=== PATIENT | female | born 1970 | race Caucasian/White ===

== ENCOUNTER → 2017-03-28 09:37 | Outpatient (CLI) | payer OTHER, SELFPAY ==
--- NOTE | 2017-03-28 09:40 | RAD_ITS ---
STUDY: X-RAY - LUMBAR SPINE REASON FOR EXAM: Female, 46 years old. Pain shooting down left leg TECHNIQUE: 5 view(s) of the lumbar spine were obtained. COMPARISON: Prior study of 08/18/2015 FINDINGS: Normal lumbar lordosis. There is no substantial scoliosis. There is a normal alignment of the vertebrae. There is mild diffuse endplate spondylosis throughout the lumbar spine. There is moderate narrowing of the L3-4 disc space. There is no demonstrated fracture. The soft tissue structures are unremarkable. RAD/L/S Spine Min 4 Views IMPRESSION: Mild diffuse endplate spondylosis. There is no evidence of fracture, spondylolysis, or spondylolisthesis. There is moderately severe narrowing of the L3-4 disc space. Electronically Signed: Aj Culp MD at 22:18 EST , Service support ,
== END ==
PROVIDERS: Family Provider Family Medicine; PCP Family Medicine; Visit Provider Family Medicine
DX: M79.605 Pain in left leg (principal)
CPT/HCPCS: 72110

== ENCOUNTER → 2017-04-20 13:45 | Outpatient (CLI) | payer OTHER, SELFPAY ==
--- NOTE | 2017-04-20 13:45 | MRI_ITS ---
STUDY: MRI LUMBAR SPINE WITHOUT CONTRAST REASON FOR EXAM: Female, 47 years old. Radiculopathy and left sided sciatica TECHNIQUE: Standardized fat and water weighted pulse sequences were obtained in the sagittal and axial planes. COMPARISON: None FINDINGS: T12-L1: Normal endplates. Normal disc height, hydration and morphology. Normal bilateral facet joints. Normal central canal and bilateral lateral recesses. Normal bilateral intervertebral neural foramina. Normal lumbar lordosis. There is no substantial scoliosis. Normal conus medullaris that terminates at the L1 level. L1-2: Normal endplates. Normal disc height, hydration and morphology. Normal bilateral facet joints. Normal central canal and bilateral lateral recesses. Normal bilateral intervertebral neural foramina. L2-3: Normal endplates. Normal disc height, hydration and morphology. Normal bilateral facet joints. Normal central canal and bilateral lateral recesses. Normal bilateral intervertebral neural foramina. L3-4: Disc space narrowing and desiccation with anterior osteophytes. Bulging annulus with mild central canal and bilateral foraminal stenoses. L4-5: Disc desiccation. Broad left subarticular disc protrusion and bilateral facet and ligamentum flavum hypertrophy. Moderate to severe left lateral recess stenosis and moderate left foraminal stenosis. L5-S1: Normal endplates. Normal disc height, hydration and morphology. Normal bilateral facet joints. Normal central canal and bilateral lateral recesses. Normal bilateral intervertebral neural foramina. Normal visualized sacral ala. Normal visualized paraspinous soft tissue structures. MRI/Spine Lumbar (Routine) IMPRESSION: Degenerative disc disease at the L3-4 and L4-5 levels. Moderate to severe left lateral recess stenosis and moderate left foraminal stenosis at the L4-5 level. Electronically Signed: Chi Zhou MD at 0:21 EST Tel , Service support ,
== END ==
PROVIDERS: Family Provider Family Medicine; PCP Family Medicine; Visit Provider Family Medicine
DX: M54.16 Radiculopathy, lumbar region (principal)
CPT/HCPCS: 72148

== ENCOUNTER 2017-07-17 09:30 | Outpatient (RCR) | payer OTHER, SELFPAY ==
--- NOTE | 2017-03-23 13:51 | HP.PTEVAL_ITS ---
Patient's Visit Information JARRELL GOFF is a 46 year old F referred to Physical Therapy by Balwinder Fajardo DR.JSUPPA with a diagnosis of PLANTAR FASCITIS. Date of Evaluation: 03/22/17 Physical Therapist: Carolann Hong - Visit Plan Frequency: 2-3x /Week Duration: 4-6 Weeks Plan: LEFT FOOT US, STM AND STRETCHING. LLE AND CORE STRENGTHENING. POSTURE CORRECTION AND STRENGTHEING. PATIENT IS AGREEABLE TO THIS POC AND PLANS TO SEE DR. COHN FOR HER LOW BACK PAIN AND RECENT EPISODE OF SHOOTING PAIN DOWN THE LLE. 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 Disability: NO. Present symptoms: LEFT HEEL AND ARCH. PATIENT DENIES JANEE LE PAIN, NUMBNESS OR TINGLING OTHERWISE. Present since: ABOUT 4 MONTHS AGO. Pain Scale: WORST 7/10, LEAST 0/10. Currently: 10. Commenced as a result of: NO APPARENT REASON. Symptoms at onset: SAME. Worse: STAIRS, WALKING. Better: GETTING THE WEIGHT OFF OF IT. TEMP RELEIF FROM EX'S DR. FAJARDO GAVE HER: CALF STRETCHING IN STANDING AND LONG SIT OR SITTING. Disturbed sleep: NO. Previous history/Previous treatment: HOME EX' S. NEW ORTHOTICS ABOUT 6 WEEKS AGO AND THEY MIGHT BE HELPIING A LITTLE BIT BUT NOT MUCH. HAS HAD ORTHOTICS HERE BEFORE TOO AND DID NOT LIGHT THEM. HISTORY OF DX OF PLANTAR FASCITIS 2 TIMES IN THE PAST STARTING BACK ABOUT 20 YEARS AGO. FIRST TIME SHE GOT OVER THE PLANTAR FASCITIS WITH PT BUT SECOND TIME RESUMED THE EX'S AND IT WENT AWAY. CAN'T GET IT TO GO AWAY THIS TIME. BACK HAS BEEN FLARED UP QUITE A BIT OVER THE LAST 4 MONTHS TOO. Gait: PATIENT REPORTS THE FOOT PAIN CAUSES HER TO LIMP SHE TRIES NOT TO PUT PRESSURE ON HER HEEL BECAUSE SHE HAS TO KEEP GOING BUT AT TIMES IT FEELS LIKE IT IS GOING TO SNAP. Accidents: NO. Unexplained weight loss: NO. Imaging: X-RAY OF LEFT FOOT - NORMAL PER PATIENT REPORT. PMH: HTN, SLEEP APNEA, HYPOTHYROID, NIDDM, FIBROMYALGIA, GERD. HISTORY OF LBP STARTING ABOUT 8 YEARS AGO. CHRONIC BACK PAIN WITH REFERRAL TO BUTTOCKS. MASSAGE ONCE A MONTH. PT FOR BACK IN THE PAST WITH BENEFIT AND STILL DOES PIRIFORMIS STRETCHING. NO LUMBAR MRI. NO BACK SURGERY OR BERNY'S. Recent major surgery: UNREMARKABLE BUT GASTRIC SLEEVE PLANNED IN JUNE [address] [facility]. ON 1500 JALEN DIET AND HAS LOST 10LBS. OTHER: PATIENT HAS HAD TWO EPISODES OF SEVERE PAIN SHOOTING DOWN HER LLE FROM HER BACK AND THE LAST TIME WAS WITHIN THE LAST 4 MONTHS. CURRENTLY SEES A CHIROPRACTOR. - Objective THIS PATIENT AMBULATES INDEP'LY INTO PT WITHOUT ANY ASSISTIVE DEVICES AND A MILD LIMP ON THE LLE. LUMBAR MVMT LOSS: FLEX - MIN, EXT - MOD, RIGHT SG - MIN WITH C/O LEFT LBP, LEFT SG - MIN. SITTING POSTURE IS POOR. ACTIVE CORRECTION OF SITTING POSTURE ABOLISHES L HEEL PAIN. POSSIBLE POSITIVE LLE DURAL SIGN. JANEE LE LIGHT TOUCH SENSATION IS INTACT AND SYMMETRICAL. JANEE LE DTR'S ARE NORMAL. RIGHT LE STRENGTH IS 5/5 WITH MMT. POOR CORE STRENGTH. LLE STRENGTH IS 5/5 WITH MMT EXCEPT LEFT HIP 4-/5 AND LEFT PLANTAR FLEX 3+/5. PATIENT HAS TENDERNESS WITH PALPATION OF THE LEFT HEEL AND THE L45S1 REGIONS. PATIENT HAS TIGHT HS'S AND GASTROC SOLEUS COMPLEX'S JANEE. - Goals Goal 1:: DECREASE C/O LEFT FOOT PAIN. Goal Time Frame: 4-6 Weeks Goal 2:: IMPROVE STANDING, WALKING AND STAIR CLIMBING FUNCTION Goal Time Frame: 4-6 Weeks Goal 3:: INDEP HEP Goal Time Frame: 4-6 Weeks - Rehabilitation Potential Rehabilitation Potential: Fair - Anticipated Interventions Patient/Client Instruction: Educate patient on: Condition, Plan of Care, Risk Factors, Benefits of Fitness Program For the Purpose of:: To improve self management Therapeutic Exercise to Include: Strength training, Flexibilty training, Gait and locomotor training, In an aquatic setting, Passive ROM, Active ROM, Dynamic Lumbar Stabilization Comment: PATIENT MAY BE A GOOD CANDIDATE FOR AQUATIC THERAPY. For the Purpose of:: To decrease pain, To increase ROM, To improve muscle performance and motor function, To improve ability of physical actions for home/ community/work/leisure Manual Therapy Techniques to Include: Functional dry needling, Soft tissue mobilization Comment: CONSIDER DRY NEEDLING LEFT FOOT. HAVE NOT DISCUSSED WITH PATIENT YET. For the Purpose of:: To decrease pain, To decrease swelling/inflammation, To increase ROM, To improve nutrient delivery to tissue Ultrasound (thermal/non thermal): Yes For the Purpose of:: To decrease pain, To decrease swelling/inflammation, To improve nutrient delivery to tissue Thank you for the opportunity to evaluate your patient. For Medicare and Medicare HMO plans, please review the plan of care and approve it. It will need to be FAXED BACK to us at [phone] for Medicare purposes. Please let me know if there are questions or concerns regarding this plan of care. Physician Signature: Date:
--- NOTE | 2017-07-17 09:30 | DT_ITS ---
This patient was seen during an EMR downtime July 17, 2017 - July 24, 2017. This patient may have a combination of paper and electronic documentation or all paper documentation. All documentation is viewable within the e-chart portion of [employer] for each patient visit.
--- NOTE | 2017-08-13 13:06 | HP.PTDCSUM_ITS ---
HP - PT D/C Summary It has been my pleasure to treat JARRELL GOFF under orders from Balwinder Fajardo , for the diagnosis of PLANTAR FASCITIS for a total of 15 visit(s). Discharge Date: Please see the following information for a summary of their discharge status. - Subjective Subjective: PATIENT REPORTS SHE IS HAPPY WITH HER PROGRESS WITH PT. WANTS TO BE D/C'D TO CONTINUE THE EX'S IN HER POOL AND THE HOME STRETCHES ON HER OWN. STILL HAS INTERMITTENT LEFT CALF AND FOOT TIGHTNESS ABOUT 5% OF THE THE. USUALLY NOT TIGHT. HAD GASTRIC SLEEVE SURG 06/20/17 THEREFORE HASN'T BEEN HERE SINCE SURGERY. ON MEDICAL LEAVE X 1 MORE WEEK. ONLY EX IS WALKING RIGHT NOW. - Pain L foot Pain Intensity (Out of 10): 0 LEFT LOW BACK/BUTTOCK Pain Intensity (Out of 10): 0 - Overall Improvement % Improvement: 95 - Objective Objective/Function: UPON EXAM, LUMBAR ROM WFL ALL PLANES WITH GENTLE TESTING. JANEE LE STRENGTH WITH MMT'IING IS AT LEAST 4/5 AND SYMMETRICAL. SENSATION LE'S - INTACT. SLS JANEE LE'S > 20 SEC EA. ABLE TO HEEL WALK AND TOE WALK. NO PAIN WITH TESTING TODAY. BACK OSWESTRY HAS IMPROVED FROM 7 TO 4. - Goals Goal 1:: DECREASE C/O LEFT FOOT PAIN. Goal Progress: Progressing Goal 2:: IMPROVE STANDING, WALKING AND STAIR CLIMBING FUNCTION Goal Progress: Progressing Goal 3:: INDEP HEP Goal Progress: Progressing - Plan Plan: D/C. PATIENT IS AGREEABLE. - D/C Information If there are questions or concerns regarding this patient's physical therapy, please feel free to call me at [phone]. Thank you for the referral of this patient. Sincerely, Carolann Hong
== END 2017-07-17 19:00 | disposition home or self-care (01) ==
LOC: PT 09:30
PROVIDERS: Family Provider Family Medicine; PCP Family Medicine; Visit Provider Podiatrist Foot & Ankle Surgery
DX: M72.2 Plantar fascial fibromatosis (principal)
CPT/HCPCS: 97014; 97035; 97110; 97113; 97140; 97162; 97164; 97530; G0283

== ENCOUNTER → 2017-08-11 06:00 | Outpatient (CLI) | payer OTHER, SELFPAY ==
[2017-08-11 07:30] LABS: Hematocrit 42.5 % (37-47); Hemoglobin 13.7 g/dl (12.0-15.0); Mean Corp Hgb Conc 32.2 g/gl (32-36); Mean Corpuscular Hgb 27.8 pg (27.0-32.0); Mean Corpuscular Volume 86.4 fL (81-99); Mean Platelet Vol. 10.3 fl (6.2-12.0); Platelet Count 355 K/mm3 (150-450); RBC Distribution Width CV 14.6 % (11.6-14.6); RBC Distribution Width SD 46.2 fl (35.1-43.9); Red Blood Count 4.92 M/mm3 (4.2-5.4); White Blood Count 10.5 K/mm3 (4.4-11.0)
[2017-08-11 07:32] LABS: Scan Indicated on CBC? Y/N NO
[2017-08-11 08:20] LABS: Anion Gap 8 (5-15); BUN 10 mg/dL (7-18); Calcium,Total 9.3 mg/dL (8.5-10.1); Chloride 105 mmol/L (98-107); Creatinine, Serum 0.83 mg/dL (0.55-1.02); EST Glomerular Filtration Rate 77 mL/min (>60); Est Glom Filt Rate - Afr Amer 94 mL/min (>60); Ferritin 189 ng/mL (8-252); Glucose 106 mg/dL (74-106); Iron 61 ug/dL (50-170); Iron Binding Capacity,Total 304 ug/dL (250-450); Potassium 4.1 mmol/L (3.5-5.1); Sodium Level 143 mmol/L (136-145)
[2017-08-11 08:34] LABS: Vitamin B12 996 pg/mL (211-911); Vitamin D,25 Hydroxy 63.2 ng/mL (29.95-100.01)
[2017-08-11 08:39] LABS: PTHIN 45.3 pg/mL (18.4-80.1)
[2017-08-15 09:58] LABS: Vitamin B1, Thiamine 183.4 nmol/L (66.5-200.0)
== END ==
PROVIDERS: Family Provider Family Medicine; PCP Family Medicine
DX: E56.9 Vitamin deficiency, unspecified (principal); Z98.84 Bariatric surgery status
CPT/HCPCS: 36415; 80048; 82306; 82607; 82728; 82746; 83540; 83550; 83970; 84425; 85027

== ENCOUNTER → 2017-09-23 09:38 | Outpatient (CLI) | payer OTHER, SELFPAY ==
[2017-09-23 10:51] LABS: Hematocrit 43.3 % (37-47); Mean Corp Hgb Conc 32.3 g/gl (32-36); Mean Corpuscular Hgb 28.4 pg (27.0-32.0); Mean Corpuscular Volume 87.8 fL (81-99); Mean Platelet Vol. 10.1 fl (6.2-12.0); Platelet Count 393 K/mm3 (150-450); RBC Distribution Width CV 14.9 % (11.6-14.6); Red Blood Count 4.93 M/mm3 (4.2-5.4); White Blood Count 9.1 K/mm3 (4.4-11.0)
[2017-09-23 10:54] LABS: Scan Indicated on CBC? Y/N NO
[2017-09-23 11:38] LABS: T4 Free Direct 1.06 ng/dL (0.76-1.46); Thyroid Stim Hormone (TSH) 0.97 uIU/mL (0.358-3.74)
[2017-09-23 12:28] LABS: Anion Gap 12 (5-15); BUN 9 mg/dL (7-18); BUN/Creat Ratio 10.6 RATIO (10-20); Calcium,Total 9.2 mg/dL (8.5-10.1); Chloride 102 mmol/L (98-107); Creatinine, Serum 0.85 mg/dL (0.55-1.02); EST Glomerular Filtration Rate 76 mL/min (>60); Est Glom Filt Rate - Afr Amer 91 mL/min (>60); Ferritin 141 ng/mL (8-252); Glucose 106 mg/dL (74-106); Iron 62 ug/dL (50-170); Iron Binding Capacity,Total 314 ug/dL (250-450); PERCENT IRON SATURATION 19.7 % (15.0-55.0); Potassium 3.9 mmol/L (3.5-5.1); Sodium Level 141 mmol/L (136-145)
[2017-09-25 09:07] LABS: T3 Total - Triiodothyronine 0.89 ng/mL (0.6-1.81)
[2017-09-25 09:07] LABS: Vitamin B12 1318 pg/mL (211-911)
== END ==
PROVIDERS: Family Provider Family Medicine; PCP Family Medicine; Visit Provider Family Medicine
DX: D64.9 Anemia, unspecified (principal); R53.83 Other fatigue; E56.9 Vitamin deficiency, unspecified; Z98.84 Bariatric surgery status
CPT/HCPCS: 36415; 80048; 82607; 82728; 82746; 83540; 83550; 84425; 84439; 84443; 84480; 85027

== ENCOUNTER → 2017-10-25 13:25 | Outpatient (CLI) | payer OTHER, SELFPAY ==
--- NOTE | 2017-10-25 13:33 | US_ITS ---
STUDY: ULTRASOUND TRANSVAGINAL CLINICAL: Female, 47 years old. Dyspareunia TECHNIQUE: Transvaginal COMPARISON: None. FINDINGS: Uterus not visualized consistent with hysterectomy Tiny nabothian cyst within the lower uterine segment Normal right ovary, measuring 3.4 x 2.4 x 2.1 cm. There is a cyst measuring 1.8 x 1.7 x 1.5 cm Left ovary not visualized status post oophorectomy There is no free fluid in the pelvis. US/Transvaginal Non- IMPRESSION: Small right ovarian cyst measuring 1.8 x 1.7 x 1.5 cm status post hysterectomy and left oophorectomy Electronically Signed: Brandon Umanzor MD at 21:44 EDT , Service support ,
== END ==
PROVIDERS: Family Provider Family Medicine; PCP Family Medicine; Visit Provider Advanced Practice Midwife
DX: R10.31 Right lower quadrant pain (principal); G89.29 Other chronic pain
CPT/HCPCS: 76830; 93976

== ENCOUNTER → 2017-11-29 22:28 | Outpatient (CLI) | payer OTHER, SELFPAY ==
[2017-11-29] MEDS: Zolpidem Tartrate 5 MG Tablet PO (22:00)
== END ==
PROVIDERS: Family Provider Family Medicine; PCP Family Medicine; Referring Provider Family Medicine; Visit Provider Family Medicine
DX: G47.33 Obstructive sleep apnea (adult) (pediatric) (principal)
CPT/HCPCS: 95811

== ENCOUNTER → 2018-01-01 09:36 | Outpatient (CLI) | payer OTHER, SELFPAY ==
[2017-12-14 16:28] VITALS: BMI 29.2
[2018-01-01 10:09] LABS: Hematocrit 43.7 % (37-47); Mean Corpuscular Hgb 28.1 pg (27.0-32.0); Mean Corpuscular Volume 87.6 fL (81-99); Mean Platelet Vol. 9.8 fl (6.2-12.0); Platelet Count 333 K/mm3 (150-450); RBC Distribution Width CV 14.2 % (11.6-14.6); RBC Distribution Width SD 45.4 fl (35.1-43.9); Red Blood Count 4.99 M/mm3 (4.2-5.4); White Blood Count 9.5 K/mm3 (4.4-11.0)
[2018-01-01 10:10] LABS: Scan Indicated on CBC? Y/N NO
[2018-01-01 10:57] LABS: Vitamin B12 1956 pg/mL (211-911)
[2018-01-01 10:59] LABS: PTHIN 35.3 pg/mL (18.4-80.1)
[2018-01-01 11:38] LABS: Anion Gap 11 (5-15); BUN 10 mg/dL (7-18); BUN/Creat Ratio 13.5 RATIO (10-20); Calcium,Total 9.1 mg/dL (8.5-10.1); Chloride 101 mmol/L (98-107); Creatinine, Serum 0.74 mg/dL (0.55-1.02); EST Glomerular Filtration Rate 88 mL/min (>60); Est Glom Filt Rate - Afr Amer 107 mL/min (>60); Ferritin 122 ng/mL (8-252); Glucose 92 mg/dL (74-106); Iron 73 ug/dL (50-170); Iron Binding Capacity,Total 325 ug/dL (250-450); Potassium 3.9 mmol/L (3.5-5.1); Sodium Level 138 mmol/L (136-145)
[2018-01-08 15:53] LABS: Vitamin B1, Thiamine 203.8 nmol/L (66.5-200.0)
== END ==
PROVIDERS: Family Provider Family Medicine; PCP Family Medicine
DX: E66.3 Overweight (principal); Z98.84 Bariatric surgery status; E66.9 Obesity, unspecified
CPT/HCPCS: 36415; 80048; 82306; 82607; 82728; 82746; 83540; 83550; 83970; 84425; 85027

== ENCOUNTER 2018-01-16 18:00 | Outpatient (RCR) | payer OTHER, SELFPAY ==
--- NOTE | 2017-05-12 12:53 | MASS.EVAL ---
Massage Therapy Evaluation: Initial Evaluation Date: 05/09/2017 SUBJECTIVE: Ivanna is a 46 year old female who was referred to the [facility] facility for a massotherapy evaluation by Dr. Samra Obrien with the diagnosis of fibromyalgia, low back pain and Sciatic pain. Ivanna presents today with the symptoms of low back pain with muscle tension in her low back and hips. She also complains of tension and pain in her neck shoulders and also reports foot pain. She reports having a medical history of neck and back pain. She reports having minimal limitations during her daily activities currently. OBJECTIVE: Upon observation Ivanna has poor posture with her head forward and shoulders forward from the neutral position in sitting and standing. After examination and palpation I found Mel to have very high muscle tension with tenderness and myofascial restrictions in her sub occipitals, trapezius, rhomboids, scalenes, thoracic paraspinals and pectoral muscles. Her hips and lumbar region were also tight. The first treatment consisted of a one hour massage to her upperbody and feet with myofascial release, muscle stripping, trigger point compression techniques, and cervical manual traction. ASSESSMENT: I feel that Ivanna is a good candidate for massotherapy at this time. She had a favorable response to the first treatment with reduction in her muscle aches, pain and tension. She also had improvement in her cervical flexibility. She has also responded to massage treatments well in the past. PLAN: The plan of care was reviewed with the patient. The patient is to be seen on as needed basis for a total of ten sessions with the recommendation of once every four weeks for a one hour treatment.
--- NOTE | 2018-01-30 16:14 | MASS.DISCH ---
Massage Therapy Discharge Summary: Initial Evaluation: 05/09/2017 Diagnosis: Fibromyalgia, low back pain, sciatic pain No. of Visits: of 10 Date of last visit: 01/16/2018 Goals: Met Decreased pain This patient is being discharged from our care at the [facility]. Thank you, Edita Orellana LMT
--- NOTE | 2018-01-30 16:17 | DS.PCM_ITS ---
Massage Therapy Discharge Summary: Initial Evaluation: 05/09/2017 Diagnosis: Fibromyalgia, low back pain, sciatic pain No. of Visits: of 10 Date of last visit: 01/16/2018 Goals: Met Decreased pain This patient is being discharged from our care at the [facility]. Thank you, Edita Orellana LMT
== END 2018-01-16 19:00 | disposition home or self-care (01) ==
LOC: MASS 18:00
PROVIDERS: Family Provider Family Medicine; PCP Family Medicine; Visit Provider Family Medicine
DX: M25.519 Pain in unspecified shoulder (principal)
CPT/HCPCS: 97124

== ENCOUNTER → 2018-02-16 12:42 | Outpatient (CLI) | payer OTHER, SELFPAY ==
[2017-12-14 16:28] VITALS: BMI 29.2
--- NOTE | 2018-02-16 12:46 | BI_ITS ---
MAMMOGRAPHY - BILATERAL SCREENING REASON FOR EXAM: Female, 47 years old. Routine annual screening examination. PERTINENT HISTORY: Non-contributory. History of prior bilateral breast reduction surgery. TECHNIQUE: Digital bilateral breast naa (3D mammographic acquisition) in the CC and MLO projections. 2-D mediolateral oblique (MLO) and craniocaudad (CC) views of both breasts were obtained. CAD: Full Field Digital Mammography with Computer Added Detection was performed. COMPARISON: Comparison is made with prior study dated February 02, 2017 and December 31, 2015. FINDINGS: Breast Composition: The breasts are heterogeneously dense, which may obscure small masses. There are no dominant masses or suspicious calcifications. No other significant abnormalities are identified. There has been no significant change since the prior study. BI/SCREENING MAMM (CAD), BILAT IMPRESSION: Stable bilateral screening mammogram. Yearly follow-up mammogram recommended. (A) ASSESSMENT CATEGORY: BIRADS Category 1: Negative. A letter regarding these results will be sent to the patient by the facility within 30 days. Approximately 10% of breast cancers are not detected by mammography. A normal mammogram should not delay biopsy of a clinically suspicious abnormality. [id number] Electronically Signed: Stephane Dinh MD at 15:37 EST Tel [phone], Service support ,
== END ==
PROVIDERS: Family Provider Family Medicine; PCP Family Medicine; Referring Provider Obstetrics & Gynecology; Visit Provider Obstetrics & Gynecology
DX: Z12.31 Encounter for screening mammogram for malignant neoplasm of breast (principal)
CPT/HCPCS: 77063; 77067

== ENCOUNTER → 2018-07-03 07:38 | Outpatient (CLI) | payer OTHER, SELFPAY ==
[2018-03-29 10:15] VITALS: BMI 25.7
[2018-07-03 08:15] LABS: Hematocrit 42.3 % (37-47); Mean Corp Hgb Conc 33.1 g/gl (32-36); Mean Corpuscular Volume 87.8 fL (81-99); Mean Platelet Vol. 9.1 fl (6.2-12.0); Platelet Count 322 K/mm3 (150-450); RBC Distribution Width CV 13.7 % (11.6-14.6); RBC Distribution Width SD 44.2 fl (35.1-43.9); Red Blood Count 4.82 M/mm3 (4.2-5.4); White Blood Count 7.4 K/mm3 (4.4-11.0)
[2018-07-03 08:17] LABS: Scan Indicated on CBC? Y/N NO
[2018-07-03 08:36] LABS: Microalbumin,Random Urine 5.2 mg/L (NO RANGE EST.); Microalbumin:Creatinine Ratio 4.5 mg/g CRE (<30 mg/g CRE)
[2018-07-03 08:47] LABS: Hemoglobin A1c 5.7 % (4.2-6.3)
[2018-07-03 08:51] LABS: Vitamin B12 > 2000 pg/mL (211-911)
[2018-07-03 09:21] LABS: Anion Gap 5 (5-15); BUN 15 mg/dL (7-18); BUN/Creat Ratio 18.3 RATIO (10-20); Calcium,Total 9.6 mg/dL (8.5-10.1); Chloride 104 mmol/L (98-107); Cholesterol 215 mg/dL (200); Creatinine, Serum 0.82 mg/dL (0.55-1.02); EST Glomerular Filtration Rate 78 mL/min (>60); Est Glom Filt Rate - Afr Amer 95 mL/min (>60); Ferritin 144 ng/mL (8-252); Free T3 2.3 pg/mL (2.18-3.98); Glucose 88 mg/dL (74-106); High Density Lipoprotein 67 mg/dL; Iron 105 ug/dL (50-170); Iron Binding Capacity,Total 319 ug/dL (250-450); Potassium 4.3 mmol/L (3.5-5.1); Sodium Level 138 mmol/L (136-145); T4 Free Direct 1.28 ng/dL (0.76-1.46); Thyroid Stim Hormone (TSH) 1.04 uIU/mL (0.358-3.74); Triglycerides 65 mg/dL; Very Low Density Lipoprotein 13 mg/dL (5-40)
[2018-07-06 15:48] LABS: Vitamin B1, Thiamine 229.7 nmol/L (66.5-200.0)
== END ==
PROVIDERS: Family Provider Family Medicine; PCP Family Medicine
DX: E11.9 Type 2 diabetes mellitus without complications (principal); E03.9 Hypothyroidism, unspecified; E78.5 Hyperlipidemia, unspecified; E56.9 Vitamin deficiency, unspecified; Z98.84 Bariatric surgery status; G47.33 Obstructive sleep apnea (adult) (pediatric); E61.1 Iron deficiency; Z99.89 Dependence on other enabling machines and devices
CPT/HCPCS: 36415; 80048; 80061; 82043; 82570; 82607; 82728; 82746; 83036; 83540; 83550; 84425; 84439; 84443; 84481; 85027

== ENCOUNTER → 2018-10-26 08:30 | Outpatient (CLI) | payer OTHER, SELFPAY ==
[2018-03-29 10:15] VITALS: BMI 25.7
--- NOTE | 2018-10-26 08:45 | MRI_ITS ---
STUDY: MRI LUMBAR SPINE WITHOUT CONTRAST REASON FOR EXAM: Female, 48 years old. Low back pain, bilateral leg pain. TECHNIQUE: Standardized fat and water weighted pulse sequences were obtained in the sagittal and axial planes. COMPARISON: 04/20/2017 FINDINGS: T12-L1: Normal endplates. Normal disc height, hydration and morphology. Normal bilateral facet joints. Normal central canal and bilateral lateral recesses. Normal bilateral intervertebral neural foramina. Normal lumbar lordosis. There is no substantial scoliosis. Normal conus medullaris that terminates at the L1. L1-2: Normal endplates. Normal disc height, hydration and morphology. Normal bilateral facet joints. Normal central canal and bilateral lateral recesses. Normal bilateral intervertebral neural foramina. L2-3: Normal endplates. Normal disc height, hydration and morphology. Normal bilateral facet joints. Normal central canal and bilateral lateral recesses. Normal bilateral intervertebral neural foramina. L3-4: Mild bilateral facet hypertrophy with fluid in the facet joints consistent with instability and mild ligament flavum hypertrophy. No change in the 2 mm retrolisthesis of L3 on L4 with a mild bilobed disc protrusion which produces mild spinal stenosis, moderate right neural foraminal stenosis with abutment of the right L3 nerve root laterally and mild left neural foraminal stenosis. L4-5: Mild bilateral facet hypertrophy and moderate ligament flavum hypertrophy. No change in the mild left preforaminal and foraminal disc protrusion which produces mild spinal stenosis, moderate left lateral recess stenosis with abutment of the left L5 nerve root but worsening left neural foraminal stenosis which is moderate with abutment of the left L4 nerve root laterally. L5-S1: Enlarging left foraminal disc protrusion which now produces moderate left neural foraminal stenosis with abutment of the left L5 nerve root laterally. No central spinal stenosis. Normal visualized sacral ala. Normal visualized paraspinous soft tissue structures. MRI/Spine Lumbar (Routine) IMPRESSION: Worsening degenerative disc disease to the left at L4/L5 and L5/S1. Electronically Signed: Sukhjinder Mejia MD at 10:42 EDT Tel , Service support ,
== END ==
PROVIDERS: Family Provider Family Medicine; PCP Family Medicine; Referring Provider Family Medicine; Visit Provider Family Medicine
DX: M51.26 Other intervertebral disc displacement, lumbar region (principal); M54.16 Radiculopathy, lumbar region
CPT/HCPCS: 72148

== ENCOUNTER → 2018-11-19 06:21 | Outpatient (CLI) | payer OTHER, SELFPAY ==
[2018-03-29 10:15] VITALS: BMI 25.7
--- NOTE | 2018-11-19 06:29 | EKG12_ITS ---
Test Reason : PRE-OP Blood Pressure : / mmHG Vent. Rate : 089 BPM Atrial Rate : 089 BPM P-R Int : 140 ms QRS Dur : 092 ms QT Int : 350 ms P-R-T Axes : 059 020 052 degrees QTc Int : 425 ms Normal sinus rhythm Possible Left atrial enlargement Borderline ECG Confirmed by ETHEL MONROY, KUNAL ([id number]), editorial assistant ELVIS MAYERS ([id number]) on 11/20/2018 1:09:52 PM Referred By: Samra Obrien Confirmed By:KUNAL DAVENPORT MD
== END ==
PROVIDERS: Family Provider Family Medicine; PCP Family Medicine; Referring Provider Family Medicine; Visit Provider Family Medicine
DX: Z01.818 Encounter for other preprocedural examination (principal)
CPT/HCPCS: 93005

== ENCOUNTER 2018-11-23 08:40 | Day surgery (SDC) | payer OTHER, SELFPAY ==
[2018-03-29 10:15] VITALS: BMI 25.7
[2018-11-23] MEDS: Lactated Ringers 1,000 ML 100 ML IV (08:50)
[2018-11-23 09:04] VITALS: BP 112/78; PULSE 91; RESP 16; TEMP 36.9; O2SAT 100; BMI 26.2
--- NOTE | 2018-11-23 10:38 | PCM.HP.STD ---
Problem List (1) Screening for intestinal cancer Status: Acute History of Present Illness Date of Admission: 11/23/18 The patient is a 48 year old F who presents for screening colonoscopy today. She had a previous colonoscopy in her 30s when she was septic. She has no direct family member who has colon cancer. She presents for screening examination. No bright red blood per rectum or melena. She otherwise has a good feeling of wellness Past Medical History Past Medical History (Chronic Problems): Chronic Problems (Last Reviewed 10/10/18 @ 11:11 by Thelma Wiley) DDD (degenerative disc disease), lumbar (Chronic) at L3/L4, L4/L5 with stenosis recently identified on MRI Medical History: Medical History (Last Reviewed 10/10/18 @ 11:11 by Thelma Wiley) DDD (degenerative disc disease), lumbar (Chronic) M51.36 at L3/L4, L4/L5 with stenosis recently identified on MRI Allergies sulfamethoxazole [From Bactrim] Adverse Reaction (Verified 11/23/18 09:03) Vomiting trimethoprim [From Bactrim] Adverse Reaction (Verified 11/23/18 09:03) Vomiting MARTHA CRAB Allergy (Uncoded 11/23/18 09:03) Swelling, itching Home Medications: Ambulatory Orders Medication Instructions Recorded Cholecalciferol (VIT D3) [Vitamin 2,000 unit PO DAILY 09/01/14 D] Levothyroxine [Synthroid] 137 mcg PO QHS 09/01/14 Milnacipran HCl [Savella] 50 mg PO BREAKFAST 09/01/14 Valsartan [Diovan] 320 mg PO DAILY 09/01/14 Aspirin [Aspirin, Baby] 81 mg PO QHS 11/23/15 Fexofenadine/Pseudoephedrine 1 each PO DAILY 11/23/15 [Sallie-D 24 Hour Tablet] buPROPion XL [Wellbutrin Xl] 150 mg PO DAILY 12/16/15 Milnacipran HCl [Savella] 50 mg PO QHS 12/23/15 Calcium Citrate 1,200 mg PO DAILY 11/20/18 Cyanocobalamin (Vitamin B-12) 2,500 mcg SL DAILY 11/20/18 [Vitamin B12] Gabapentin [Neurontin] 100 mg PO 4X/DAY 11/20/18 Multivitamin with Minerals 2 ea PO DAILY 11/20/18 [Multiple Vitamin] cycloBENZAPRine HCl [Flexeril] 15 mg PO DAILY 11/20/18 traMADol [Ultram (G)] 50 mg PO Q4H PRN PRN 11/20/18 Smoking Status: Never smoker Tobacco Use: Non-smoker Review of Systems Constitutional: Denies: Anorexia Cardiovascular: Denies: Chest Pain Gastrointestinal: Denies: Abdominal Pain, Melena VTE Information - Inpt Only VTE Present on Admission: No Patient Problems: Active and Suspected Problems (Last Reviewed 10/10/18 @ 11:11 by Thelma Wiley) Screening for intestinal cancer (Acute) - Physical Exam General: Alert, Oriented x3, Cooperative Oral: Moist Mucosa Lungs: Clear to auscultation, Normal air movement Cardiovascular: Regular rate, Regular Rhythm Abdomen: Bowel Sounds Present, Soft, Non Tender Neurological: - - Normal cognition Psych/Mental Status: Normal Affect Vital Signs Temp Pulse Resp BP Pulse Ox 98.4 F 91 16 112/78 100 11/23/18 09:04 11/23/18 09:04 11/23/18 09:04 11/23/18 09:04 11/23/18 09:04 Oxygen Delivery Method Room Air Weight: 152 lb 8.958 oz Body Mass Index (BMI) 26.2 Finger Stick Blood Glucose 119 Assessment/Plan All Active Problems (Last Reviewed 10/10/18 @ 11:11 by Thelma Wiley) Screening for intestinal cancer (Acute) Segmental and somatic dysfunction of cervical region (Acute) Segmental and somatic dysfunction of thoracic region (Acute) Segmental and somatic dysfunction of lumbar region (Acute) I recommended the patient is screening colonoscopy with possible biopsy or polypectomy is indicated. She is aware of the technique, benefits, risks, alternatives. She has had an opportunity to ask and have questions answered. She presents via our open access program. We will proceed as noted. Deyvi Lainez M.D., F.A.C.S.
[2018-11-23 11:08] VITALS: BP 112/78; BP 124/77; PULSE 85; RESP 18; TEMP 36.5; O2SAT 100
--- NOTE | 2018-11-23 11:09 | OP.ENDO_ITS ---
11/23/2018 Samra Obrien [address] [place] [address] Re : Colonoscopy procedure for Ivanna Durham Dear Dr. Obrien This procedure was performed on Friday, November 23, 2018. My impressions and recommendations are as follows: Impressions : - Preparation of the colon was poor. - Hemorrhoids found on perianal exam. - Stool in the entire examined colon. - No specimens collected. Recommendations : - Discharge patient to home. - Resume previous diet. - Continue present medications. - Repeat colonoscopy at appointment to be scheduled for screening purposes. Will discuss with patient two day bowel prep and when she would like to proceed My findings are described in the full procedure note, which is enclosed. If I can be of further assistance, please feel free to contact me at Doctor phone number(s): Work: . Sincerely, Deyvi Lainez MD 11/23/2018 11:08:59 AM This report has been signed electronically.
[2018-11-23 11:15] VITALS: BP 112/78; BP 131/81; PULSE 92; RESP 16; O2SAT 98
[2018-11-23 11:25] VITALS: BP 112/78; BP 139/90; PULSE 90; RESP 16; O2SAT 100
[2018-11-23 11:31] VITALS: BP 112/78; BP 145/87; PULSE 88; RESP 16; TEMP 36.3; O2SAT 100
== END 2018-11-23 11:53 | disposition home or self-care (01) ==
LOC: EN 08:40 → AC 09:14
PROVIDERS: Family Provider Family Medicine; PCP Family Medicine; Referring Provider Family Medicine; Visit Provider Surgery
PROC: 0DJD8ZZ Inspection of Lower Intestinal Tract, Via Natural or Artificial Opening Endoscopic (ICD-10-PCS; CPT 45378; principal; 2018-11-23 09:40)
DX: Z12.11 Encounter for screening for malignant neoplasm of colon (principal); K64.9 Unspecified hemorrhoids; K59.00 Constipation, unspecified; M51.36 Other intervertebral disc degeneration, lumbar region; M48.061 Spinal stenosis, lumbar region without neurogenic claudication; Z79.899 Other long term (current) drug therapy; M99.01 Segmental and somatic dysfunction of cervical region; M99.02 Segmental and somatic dysfunction of thoracic region; M99.03 Segmental and somatic dysfunction of lumbar region; Z79.82 Long term (current) use of aspirin; Z88.1 Allergy status to other antibiotic agents; Z88.2 Allergy status to sulfonamides; E06.9 Thyroiditis, unspecified; F32.9 Major depressive disorder, single episode, unspecified; K21.9 Gastro-esophageal reflux disease without esophagitis; I10 Essential (primary) hypertension
CPT/HCPCS: 45378; J7120; J2405

== ENCOUNTER 2018-11-27 18:30 | Outpatient (RCR) | payer OTHER, SELFPAY ==
[2018-02-19 13:36] VITALS: BMI 28.3
--- NOTE | 2018-02-20 14:23 | MASS.EVAL ---
Massage Therapy Evaluation: Initial Evaluation Date: 02/19/2018 Referred By: Dr. Micah JENKINS, Age: 02 1970, 47 Diagnosis: Fibromyalgia, Sciatica Medications: See list in chart Goals: Decrease muscle pain Decrease symptoms of fibromyalgia Assessment: The patient had high tension through the neck, shoulders and back, with knots in the UT, levator and rhomboid muscles. Plan: To be seen one time per month or PRN for a total of 10 visits.
--- NOTE | 2019-01-23 11:33 | DS.PCM_ITS ---
Massage Therapy Discharge Summary: Initial Evaluation Date: 02/19/2018 Diagnosis: Fibromyalgia Sciatica No. of Visits: Date of last visit: 11/27/2018 Goals: Goals of decreased fibromyalgia symptoms and decreased general muscle tension met. This patient is being discharged from our care at the [facility]. Thank you, Edita Orellana LMT
== END 2018-11-27 19:00 | disposition home or self-care (01) ==
LOC: MASS 18:30
PROVIDERS: Family Provider Family Medicine; PCP Family Medicine; Referring Provider Family Medicine; Visit Provider Family Medicine
DX: M51.26 Other intervertebral disc displacement, lumbar region (principal); M79.7 Fibromyalgia
CPT/HCPCS: 97124

== ENCOUNTER → 2019-02-19 16:51 | Outpatient (CLI) | payer OTHER, SELFPAY ==
--- NOTE | 2019-02-19 16:53 | BI_ITS ---
MAMMOGRAPHY - BILATERAL SCREENING REASON FOR EXAM: Female, 48 years old. Routine annual screening examination. PERTINENT HISTORY: Non-contributory. History of remote bilateral breast reduction surgery. TECHNIQUE: Digital bilateral breast mamie (3D mammographic acquisition) in the CC and MLO projections. 2-D mediolateral oblique (MLO) and craniocaudad (CC) views of both breasts were obtained. CAD: Full Field Digital Mammography with Computer Added Detection was performed. COMPARISON: Comparison is made with prior study dated February 16, 2018 and February 02, 2017. FINDINGS: Breast Composition: The breasts are heterogeneously dense, which may obscure small masses. There are no dominant masses or suspicious calcifications. No other significant abnormalities are identified. There has been no significant change since the prior study. BI/SCREEN MAMM (CAD) W/MAMIE BILAT IMPRESSION: Stable bilateral screening mammogram. Yearly follow-up mammogram recommended. (A) ASSESSMENT CATEGORY: BIRADS Category 1: Negative. A letter regarding these results will be sent to the patient by the facility within 30 days. Approximately 10% of breast cancers are not detected by mammography. A normal mammogram should not delay biopsy of a clinically suspicious abnormality. [id number] Electronically Signed: Stephane Dinh, at 8:22 EST , Service support ,
== END ==
PROVIDERS: Family Provider Family Medicine; PCP Family Medicine; Referring Provider Family Medicine; Visit Provider Family Medicine
DX: Z12.31 Encounter for screening mammogram for malignant neoplasm of breast (principal)
CPT/HCPCS: 77063; 77067

== ENCOUNTER 2019-04-02 06:03 | Day surgery (SDC) | payer OTHER, SELFPAY ==
[2019-04-02] VITALS (7 sets, daily range): BP systolic 139–165; BP diastolic 84–96; PULSE 84–94; RESP 16; TEMP 36.2–36.6; O2SAT 96–100; BMI 27.6
[2019-04-02] MEDS: Lactated Ringers 1,000 ML 100 ML IV (06:45)
--- NOTE | 2019-04-02 07:02 | PCM.HP.STD ---
Problem List (1) Screening for intestinal cancer Status: Acute History of Present Illness Date of Admission: 04/02/19 The patient is a 48 year old F who presents for a repeat attempt at a colonoscopy for screening. November 2018 we attempted one. She had a very poor bowel prep. She is now performed a double bowel prep. She believes that she is better cleaned out. No bright red blood per rectum or melena. Past Medical History Past Medical History (Chronic Problems): Chronic Problems (Last Reviewed 01/30/19 @ 10:15 by Thelma Wiley) DDD (degenerative disc disease), lumbar (Chronic) at L3/L4, L4/L5 with stenosis recently identified on MRI Medical History: Medical History (Last Reviewed 01/30/19 @ 10:15 by Thelma Wiley) DDD (degenerative disc disease), lumbar (Chronic) M51.36 at L3/L4, L4/L5 with stenosis recently identified on MRI Allergies sulfamethoxazole [From Bactrim] Adverse Reaction (Verified 04/02/19 06:32) Vomiting trimethoprim [From Bactrim] Adverse Reaction (Verified 04/02/19 06:32) Vomiting MARTHA CRAB Allergy (Uncoded 04/02/19 06:32) Swelling, itching Home Medications: Ambulatory Orders Medication Instructions Recorded Cholecalciferol (VIT D3) [Vitamin 2,000 unit PO DAILY 09/01/14 D] Levothyroxine [Synthroid] 137 mcg PO DAILY 09/01/14 Milnacipran HCl [Savella] 50 mg PO BREAKFAST 09/01/14 Valsartan [Diovan] 320 mg PO DAILY 09/01/14 Aspirin [Aspirin, Baby] 81 mg PO QHS 11/23/15 Fexofenadine/Pseudoephedrine 1 each PO DAILY 11/23/15 [Sallie-D 24 Hour Tablet] buPROPion XL [Wellbutrin Xl] 150 mg PO DAILY 12/16/15 Milnacipran HCl [Savella] 50 mg PO QHS 12/23/15 Calcium Citrate 1,200 mg PO DAILY 11/20/18 Cyanocobalamin (Vitamin B-12) 2,500 mcg SL DAILY 11/20/18 [Vitamin B12] Gabapentin [Neurontin] 100 mg PO PRN PRN 11/20/18 Multivitamin with Minerals 2 ea PO DAILY 10/08/19 [Multiple Vitamin] cycloBENZAPRine HCl [Flexeril] 15 mg PO DAILY 11/20/18 traMADol [Ultram (G)] 50 mg PO Q4H PRN PRN 11/20/18 Smoking Status: Never smoker Tobacco Use: Non-smoker Review of Systems Cardiovascular: Denies: Chest Pain Respiratory: Denies: Cough Gastrointestinal: Denies: Abdominal Pain, Melena Endocrine: Denies: Change in Body Habitus VTE Information - Inpt Only VTE Present on Admission: No - Physical Exam Vitals/I&O's: Vital Signs Temp Pulse Resp BP Pulse Ox 97.2 F L 84 16 145/84 H 100 04/02/19 06:29 04/02/19 06:29 04/02/19 06:29 04/02/19 06:29 04/02/19 06:29 Oxygen Delivery Method Room Air Weight: 161 lb Body Mass Index (BMI) 27.6 Finger Stick Blood Glucose 119 General: Alert, Oriented x3, Cooperative Oral: Moist Mucosa Lungs: Clear to auscultation, Normal air movement Cardiovascular: Regular rate, Regular Rhythm Abdomen: Bowel Sounds Present, Soft, Non Tender, Non-Distended Psych/Mental Status: Normal Affect Current Medications Lactated Ringer's () 1,000 mls @ 100 mls/hr IV .Q10H DWIGHT Last Admin: 04/02/19 06:45 Dose: 100 mls/hr Documented by: Assessment/Plan All Active Problems (Last Reviewed 01/30/19 @ 10:15 by Thelma Wiley) Screening for intestinal cancer (Acute) Segmental and somatic dysfunction of cervical region (Acute) Segmental and somatic dysfunction of thoracic region (Acute) Segmental and somatic dysfunction of lumbar region (Acute) Plan to proceed with a screening colonoscopy with possible biopsy or polypectomy is indicated. She is aware of the technique, benefit, risk, alternatives. She has had an opportunity to ask and have questions answered. We will proceed as noted. She presents via open access today. This is a repeat attempt as a previous bowel prep was inadequate. Deyvi Lainez M.D., F.A.C.S.
--- NOTE | 2019-04-02 07:34 | OP.COLON_ITS ---
Patient Name: Ivanna Durham Procedure Date: 04/02/2019 7:10 AM Date of : 1970 Age: 48 Procedure: Colonoscopy Indications: Screening for colorectal malignant neoplasm Providers: Deyvi Lainez MD Referring MD: Samra Obrien Medicines: See the Anesthesia note for documentation of the administered medications Patient Profile: Last Colonoscopy: November 2018. Complications: No immediate complications. Procedure: Pre-Anesthesia Assessment: - Prior to the procedure, a History and Physical was performed, and patient medications and allergies were reviewed. The patient's tolerance of previous anesthesia was also reviewed. The risks and benefits of the procedure and the sedation options and risks were discussed with the patient. All questions were answered, and informed consent was obtained. Prior Anticoagulants: The patient has taken no previous anticoagulant or antiplatelet agents. ASA Grade Assessment: II - A patient with mild systemic disease. After reviewing the risks and benefits, the patient was deemed in satisfactory condition to undergo the procedure. After I obtained informed consent, the scope was passed under direct vision. Throughout the procedure, the patient's blood pressure, pulse, and oxygen saturations were monitored continuously. The colonoscope was introduced through the anus and advanced to the cecum, identified by appendiceal orifice and ileocecal valve. The colonoscopy was performed without difficulty. The patient tolerated the procedure well. The quality of the bowel preparation was good. The ileocecal valve and the appendiceal orifice were photographed. Scope In: 7:19:20 AM Scope Withdrawal Time 0 hours 6 minutes 7 seconds Scope Out: 7:29:48 AM Total Procedure Duration Time 0 hours 10 minutes 28 seconds Findings: Hemorrhoids were found on perianal exam. The colon (entire examined portion) appeared normal. Impression: - Hemorrhoids found on perianal exam. - The entire examined colon is normal. - No specimens collected. Recommendation: - Discharge patient to home. - Resume previous diet. - Continue present medications. - Repeat colonoscopy in 10 years for screening purposes. Procedure Code(s): --- Professional --- 51964, Colonoscopy, flexible; diagnostic, including collection of specimen(s) by brushing or washing, when performed (separate procedure) Diagnosis Code(s): --- Professional --- Z12.11, Encounter for screening for malignant neoplasm of colon K64.9, Unspecified hemorrhoids CPT copyright 2017 [employer] [place] [employer]. All rights reserved. The codes documented in this report are preliminary and upon tab builder review may be revised to meet current compliance requirements. Deyvi Lainez MD 04/02/2019 7:33:50 AM This report has been signed electronically. Number of Addenda: 0 Note Initiated On: 04/02/2019 7:10 AM
--- NOTE | 2019-04-02 07:34 | OP.CCLET_ITS ---
04/02/2019 Samra Obrien [address] [place] [address] Re : Colonoscopy procedure for Ivanna Durham Dear Dr. Obrien This procedure was performed on Tuesday, April 02, 2019. My impressions and recommendations are as follows: Impressions : - Hemorrhoids found on perianal exam. - The entire examined colon is normal. - No specimens collected. Recommendations : - Discharge patient to home. - Resume previous diet. - Continue present medications. - Repeat colonoscopy in 10 years for screening purposes. My findings are described in the full procedure note, which is enclosed. If I can be of further assistance, please feel free to contact me at Doctor phone number(s): Work: . Sincerely, Deyvi Lainez MD 04/02/2019 7:33:50 AM This report has been signed electronically.
== END 2019-04-02 08:12 | disposition home or self-care (01) ==
LOC: EN 06:03 → AC 06:04
PROVIDERS: Family Provider Family Medicine; PCP Family Medicine; Referring Provider Family Medicine; Visit Provider Surgery
PROC: 0DJD8ZZ Inspection of Lower Intestinal Tract, Via Natural or Artificial Opening Endoscopic (ICD-10-PCS; CPT 45378; principal; 2019-04-02 06:55)
DX: Z12.11 Encounter for screening for malignant neoplasm of colon (principal); K64.9 Unspecified hemorrhoids; K21.9 Gastro-esophageal reflux disease without esophagitis; I10 Essential (primary) hypertension; G47.30 Sleep apnea, unspecified; D64.9 Anemia, unspecified; E06.9 Thyroiditis, unspecified; F32.9 Major depressive disorder, single episode, unspecified; Z87.442 Personal history of urinary calculi; Z79.82 Long term (current) use of aspirin; Z79.899 Other long term (current) drug therapy
CPT/HCPCS: 45378; J7120; J2405

== ENCOUNTER → 2019-04-08 16:12 | Outpatient (CLI) | payer OTHER, SELFPAY ==
[2019-04-02 06:29] VITALS: BMI 27.6
== END ==
PROVIDERS: PCP Family Medicine; Referring Provider Chiropractor; Visit Provider Chiropractor
DX: M51.36 Other intervertebral disc degeneration, lumbar region (principal)
CPT/HCPCS: 72100

== ENCOUNTER → 2019-04-24 08:42 | Outpatient (CLI) | payer OTHER, SELFPAY ==
[2019-04-02 06:29] VITALS: BMI 27.6
--- NOTE | 2019-04-24 08:55 | RAD_ITS ---
STUDY: X-RAY - LEFT KNEE REASON FOR EXAM: Female, 49 years old. NKI, pain when going down stairs TECHNIQUE: 4 view(s) of the knee. COMPARISON: None. FINDINGS: Normal visualized distal femur. Normal visualized proximal tibia and fibula. Normal proximal tibiofibular articulation. Normal medial femorotibial compartment. Normal lateral femorotibial compartment. Normal patellofemoral articulation. The soft tissue structures are unremarkable. RAD/Knee 4 or More Views IMPRESSION: Normal x-ray examination of the knee. Electronically Signed: Mark Salcedo MD at 17:02 EDT , Service support ,
== END ==
PROVIDERS: PCP Family Medicine; Referring Provider Family Medicine; Visit Provider Family Medicine
DX: M25.562 Pain in left knee (principal)
CPT/HCPCS: 73564

== ENCOUNTER → 2019-07-16 09:59 | Outpatient (CLI) | payer OTHER, SELFPAY ==
[2019-04-02 06:29] VITALS: BMI 27.6
--- NOTE | 2019-07-16 10:01 | RAD_ITS ---
STUDY: X-RAY - LUMBAR SPINE REASON FOR EXAM: Female, 49 years old. back surgery Dec 2018, L4-L5 and L5-S1 for bulging disc -- back pain and left leg pain started 3 weeks ago -- NKI TECHNIQUE: 3 view(s) of the lumbar spine were obtained. COMPARISON: April 08, 2019 FINDINGS: Normal lumbar lordosis. There is no substantial scoliosis. There is a normal alignment of the vertebrae. No evidence for acute fracture or subluxation. Disc space heights are well-maintained although there is mild multilevel endplate spurring Surgical clips are seen within the soft tissues bilateral. RAD/Lumbar Spine 2 or 3 Views IMPRESSION: Mild degenerative change. No evidence for acute fracture. Electronically Signed: Brandon Umanzor MD at 19:39 EDT , Service support ,
== END ==
PROVIDERS: PCP Family Medicine; Referring Provider Anesthesiology Pain Medicine; Visit Provider Anesthesiology Pain Medicine
DX: M54.9 Dorsalgia, unspecified (principal)
CPT/HCPCS: 72100

== ENCOUNTER 2019-08-13 10:00 | Outpatient (RCR) | payer OTHER, SELFPAY ==
[2019-04-02 06:29] VITALS: BMI 27.6
--- NOTE | 2019-07-26 08:04 | HP.PTEVAL_ITS ---
Patient's Visit Information JARRELL GOFF is a 49 year old F referred to Physical Therapy by Dr. Samra Obrien DO with a diagnosis of L knee pain. Date of Evaluation: 07/17/19 Physical Therapist: Roman Martinez DPT - Visit Plan Frequency: 2x /Week Duration: 4 Weeks Plan: May use US if needed. Start with [place] hip, quad/HS strengthening. Progress to closed chain. Lets hold off on squating, lunging and stairs until increased stability is noted and until those movements cause minmal joint pain. - Subjective Pt. is here today for her initial evaluation with diagnosis of L knee pain. Pt. reprots ahving L knee pain for a few months, but has been getting worse. Pt. reports increased pain with walking, standing, squating and stairs. Pt. had a recent xray- which was normal. Pt thought she might have some meniscal issue. 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 Pt. reports by the end of the day she is having a good deal of pain at medial joint line and on the back side of my knee cap. Pt. denies catching, no locking. No N/T. Pt. is hopeful to reduce symptosm in order to complete all work and recreational activities without limitations. - Pain L knee Pain Intensity (Out of 10): 2 Pain Intensity Range: 1, 6 - Objective POSTURE: Pt. has normal posture. Slght knee valgus postioning. PALPATION: Pt. has tenderness along medial joint line. Pt. has no posterior knee joint pain. NEURO: Normal throughout. ROM: L knee 0-0-128deg. Mild increase in symptoms with end range flexion and extension with over pressure. MMT: LLE- ankle 5/5 throughout; knee- ext 5-/5, flexion 5-/5; hip- flexion 5-/5, and 4+/5. ER 4+/5. GAIT: Pt. ambulates without AD, Pt. has slight increase in symptoms during stance phase on LLE. Normal TKE and normal knee flexion during swing. STAIRS: Increase NW with loading during ascending adn descending. - Special Tests L Knee Elaine - Meniscus: Positive L Knee Disco Test - Meniscus: Positive L Knee Steff - ACL: Negative L Knee Anterior Drawer - ACL: Negative L Knee Pivot Shift - ACL, Ant. Rotator Instability: Negative L Knee Posterior Drawer - PCL: Negative L Knee Valgus - MCL: Negative L Knee Varus - LCL: Negative L Knee Patellar Apprehension - PFS: Negative - Goals Goal 1:: LTG: pt. to be I with HEP. Goal Time Frame: 4-6 Weeks Goal 2:: STG: Pt. to have full L knee ROM without increase in symptoms. Goal Time Frame: 2-4 Weeks Goal 3:: LTG: pt. to have increased strength by 1/2 grade of all effected musculature of LLE. Goal Time Frame: 4-6 Weeks Goal 4:: LTG: Pt. to ambulate unlimited distances without increase in symptoms. Goal Time Frame: 4-6 Weeks Goal 5:: LTG: Pt. to resume all gym exercise routine without increase in symptoms. Goal Time Frame: 4-6 Weeks Goal 6:: LTG: Pt. to complete all job activities without increase in symptoms. - Rehabilitation Potential Physical Therapy Diagnosis: Pt. has signs and symptoms consistent with L knee pain. Pt. does have some signs of meniscal involvement, but was not severe. She may have some tearing, but not fully consistent. Pt. does have some weakness and pain with end ranges of motion. Rehabilitation Potential: Good - Anticipated Interventions Patient/Client Instruction: Educate patient on: Condition, Plan of Care, Risk Factors, Benefits of Fitness Program For the Purpose of:: To facilitate caregiver knowledge, To improve self management, To prevent re-injury, To improve ability to perform tasks related to life management, To improve tolerance to ADL's Therapeutic Exercise to Include: Strength training, Power training, Endurance training, Balance training, Body mechanics, Flexibilty training, Gait and locomotor training, Passive ROM, Active ROM For the Purpose of:: To decrease pain, To decrease swelling/inflammation, To increase ROM, To improve nutrient delivery to tissue, To increase oxygenation perfusion, To improve muscle performance and motor function, To improve ability to perform ADL's, To increase tolerance to activity/condition/position, To decrease level of supervision to perform tasks Ultrasound (thermal/non thermal): Yes For the Purpose of:: To decrease pain, To decrease swelling/inflammation, To increase ROM Thank you for the opportunity to evaluate your patient. For Medicare and Medicare HMO plans, please review the plan of care and approve it. It will need to be FAXED BACK to us at [phone] for Medicare purposes. For Medicare only, by signing this I certify the plan of care. Please let me know if there are questions or concerns regarding this plan of care. Physician Signature: Date:
--- NOTE | 2019-08-13 10:40 | HP.PTREVAL ---
Dr. Samra Obrien, DO, It has been my pleasure to treat JARRELL GOFF over the last 6 visits for L knee pain. Please see the progress note below for an update on the physical therapy plan of care! Subjective: Pt. reports having no pain currently. Pt. reports having no pain for the last 2 weeks. She has been able to go up and down stairs with minimal issues. Objective/Function: Pt. tolerated all PT without adverse reaction. ROM: PT. has full L knee ROM without increase in symptoms. Pt. had no pain with walking and stairs with out issues. MMT: 5-/5 throughout. Pt. reports no pain with testing. Pt. has been dary to complete gym and work activities without limitations. Plan Plan: Pt. to trial exercises on her own 2-3 weeks. If I do not hear from her by then I will DC case back to physician and HEP. Goals Goal 1:: LTG: pt. to be I with HEP. Goal Time Frame: 4-6 Weeks Goal Progress: Goal Met Goal 2:: STG: Pt. to have full L knee ROM without increase in symptoms. Goal Time Frame: 2-4 Weeks Goal Progress: Goal Met Goal 3:: LTG: pt. to have increased strength by 1/2 grade of all effected musculature of LLE. Goal Time Frame: 4-6 Weeks Goal Progress: Goal Met Goal 4:: LTG: Pt. to ambulate unlimited distances without increase in symptoms. Goal Time Frame: 4-6 Weeks Goal Progress: Goal Met Goal 5:: LTG: Pt. to resume all gym exercise routine without increase in symptoms. Goal Time Frame: 4-6 Weeks Goal Progress: Goal Met Goal 6:: LTG: Pt. to complete all job activities without increase in symptoms. Goal Progress: Goal Met Anticipated Interventions Patient/Client Instruction: Educate patient on: Condition, Plan of Care, Risk Factors, Benefits of Fitness Program For the Purpose of:: To facilitate caregiver knowledge, To improve self management, To prevent re-injury, To improve ability to perform tasks related to life management, To improve tolerance to ADL's Therapeutic Exercise to Include: Strength training, Power training, Endurance training, Balance training, Body mechanics, Flexibilty training, Gait and locomotor training, Passive ROM, Active ROM For the Purpose of:: To decrease pain, To decrease swelling/inflammation, To increase ROM, To improve nutrient delivery to tissue, To increase oxygenation perfusion, To improve muscle performance and motor function, To improve ability to perform ADL's, To increase tolerance to activity/condition/position, To decrease level of supervision to perform tasks Ultrasound (thermal/non thermal): Yes For the Purpose of:: To decrease pain, To decrease swelling/inflammation, To increase ROM Please do not hesitate to contact me at [phone] by phone or if you have questions or concerns regarding this new plan of care! Sincerely, DASH MayaT
== END 2019-08-13 19:00 | disposition home or self-care (01) ==
LOC: PT 10:00
PROVIDERS: PCP Family Medicine; Referring Provider Family Medicine; Visit Provider Family Medicine
DX: M25.562 Pain in left knee (principal)
CPT/HCPCS: 97035; 97110; 97161

== ENCOUNTER → 2019-09-25 13:23 | Outpatient (CLI) | payer OTHER, SELFPAY ==
[2019-04-02 06:29] VITALS: BMI 27.6
--- NOTE | 2019-09-25 15:25 | MRI_ITS ---
STUDY: MRI LUMBAR SPINE WITHOUT CONTRAST REASON FOR EXAM: Female, 49 years old. back pain s/p injury -- pain bilat legs lt and gt;rt, prev lumbar surgery 12/2018 TECHNIQUE: Standardized fat and water weighted pulse sequences were obtained in the sagittal and axial planes. COMPARISON: Radiograph lumbar spine 07/16/2019 and MR lumbar spine 10/26/2018 FINDINGS: T12-L1: Normal endplates. Normal disc height, hydration and morphology. Normal bilateral facet joints. Normal central canal and bilateral lateral recesses. Normal bilateral intervertebral neural foramina. Normal lumbar lordosis. There is no substantial scoliosis. Normal conus medullaris that terminates at the L1 level. L1-2: Normal endplates. Normal disc height, hydration and morphology. Normal bilateral facet joints. Normal central canal and bilateral lateral recesses. Normal bilateral intervertebral neural foramina. L2-3: Normal endplates. Normal disc height, hydration and morphology. Normal bilateral facet joints. Normal central canal and bilateral lateral recesses. Normal bilateral intervertebral neural foramina. L3-4: Normal endplates. Normal disc height, hydration and morphology. Normal bilateral facet joints. Normal central canal and bilateral lateral recesses. Normal bilateral intervertebral neural foramina. Slight retrolisthesis. Fluid in the facets. L4-5: Normal endplates. Normal disc height, hydration and morphology. Hypertrophic fluid filled bilateral facet joints. Normal central canal and bilateral lateral recesses. Moderate narrowing bilateral intervertebral neural foramina. L5-S1: Disc space narrowing. Circumferential disc marginal osteophyte causes moderate narrowing of the neural foramen on the left. Right neural foramen and central canal patent. Left hemilaminectomy. Normal visualized sacral ala. Normal visualized paraspinous soft tissue structures. MRI/Spine Lumbar (Routine) IMPRESSION: Left hemilaminectomy L5-S1. Neural foraminal narrowing bilaterally at L4-5 and on the left that L5-S1 unchanged. Electronically Signed: Mark Salcedo MD at 22:10 EDT , Service support ,
== END ==
PROVIDERS: PCP Family Medicine; Referring Provider Family Medicine; Visit Provider Family Medicine
DX: M54.16 Radiculopathy, lumbar region (principal)
CPT/HCPCS: 72148

== ENCOUNTER → 2019-10-23 06:32 | Outpatient (CLI) | payer OTHER, SELFPAY ==
[2019-04-02 06:29] VITALS: BMI 27.6
--- NOTE | 2019-10-23 13:33 | NEURO_ITS ---
NCS and/or EMG Patient Report Ordering Doctor: Samra Obrien DATE OF SERVICE: 10/23/19 Ivanna Durham presents for electrodiagnostic testing of the lower limbs. She reports back pain with radiation into the legs, worse on the left side. She reports having had left sided leg pain for approximately the last 2 months. Electrodiagnostic findings: Peroneal motor nerve demonstrates normal distal latency, amplitude and conduction velocity bilaterally. Normal tibial motor response bilaterally. Normal peroneal tibial F waves. H reflex normal bilaterally. Sensory responses are within normal limits. On needle EMG, all muscles tested in the lower limbs as well as the lumbar paraspinal showed no evidence of denervation with normal motor unit action potentials. Electrodiagnostic assessment: This is a normal electrodiagnostic study of the lower limbs. There is no electrodiagnostic evidence for peripheral neuropathy o r lumbosacral radiculopathy. If there are any further questions, please do not hesitate to contact me
== END ==
PROVIDERS: PCP Family Medicine; Referring Provider Family Medicine; Visit Provider Family Medicine
DX: M54.16 Radiculopathy, lumbar region (principal)
CPT/HCPCS: 95886; 95912

== ENCOUNTER → 2019-11-07 17:57 | Outpatient (CLI) | payer OTHER, SELFPAY ==
[2019-04-02 06:29] VITALS: BMI 27.6
--- NOTE | 2019-11-07 18:01 | CT_ITS ---
HISTORY: LUMBAR RADICULOPATHY,PAIN AND NUMBNESS DOWN LEGS,POST-OP HEMILAMINECTOMY 2018 ADDITIONAL HISTORY: None provided COMPARISON: Lumbar MRI 09/25/2019 TECHNIQUE: Axial, coronal and sagittal noncontrast CT images of the lumbar spine. 2D reconstructions were reviewed to aid in evaluation of the lumbar spine. A radiation dose optimization technique was utilized for this scan. Number of images including paperwork: [id number] FINDINGS: BONES: No acute fracture. No suspicious bone lesion. VERTEBRAL ALIGNMENT: No traumatic subluxation. DISCS AND JOINTS: Discogenic degenerative changes at L3-4, L4-5 and L5-S1, most severe at L5-S1, similar in appearance to previous MRI with changes of previous left-sided hemilaminotomy. Facet arthropathy. Degenerative changes of the sacroiliac joints. SPINAL CANAL AND FORAMINA: No critical canal stenosis. Mild to moderate left sided foraminal narrowing at L4-5 and L5-S1 similar to previous MRI. SOFT TISSUES: No paraspinous soft tissue swelling. Vascular calcifications. VISUALIZED CHEST AND/OR ABDOMEN: Unremarkable. CT/Spine Lumbar without Contrast IMPRESSION: No acute osseous abnormality. Lumbar spondylosis similar to previous MRI. Individualized dose optimization techniques were used for this CT. at 0544 Reported and signed by: Pam Méndez MD Electronically Signed: Pam Méndez MD at 5:44 EDT Tel , Service support ,
== END ==
PROVIDERS: PCP Family Medicine
DX: M54.16 Radiculopathy, lumbar region (principal); M54.41 Lumbago with sciatica, right side; M54.42 Lumbago with sciatica, left side; G89.29 Other chronic pain
CPT/HCPCS: 72131

== ENCOUNTER 2019-11-11 10:56 | Outpatient (RCR) | payer OTHER, SELFPAY ==
[2019-04-02 06:29] VITALS: BMI 27.6
== END 2019-11-13 23:59 ==
LOC: EMPH 10:56
PROVIDERS: Visit Provider Family Medicine Geriatric Medicine
DX: Z11.59 Encounter for screening for other viral diseases (principal)
CPT/HCPCS: 87635; U0003

== ENCOUNTER → 2019-12-02 12:00 | Outpatient (CLI) | payer OTHER, SELFPAY ==
[2019-04-02 06:29] VITALS: BMI 27.6
[2019-12-02 16:11] LABS: ALB/GLOB Ratio 0.7 RATIO (0.9-2.4); AST(SGOT) 11 U/L (15-37); Alanine Aminotransfer ALT/SGPT 17 U/L (13-56); Albumin, Serum 3.4 g/dL (3.2-5.0); Alkaline Phosphatase 89 U/L (45-117); Anion Gap 9 (5-15); BUN 11 mg/dL (7-18); BUN/Creat Ratio 12.3 RATIO (10-20); Calcium,Total 9.1 mg/dL (8.5-10.1); Chloride 102 mmol/L (98-107); Creatinine, Serum 0.89 mg/dL (0.55-1.02); EST Glomerular Filtration Rate 71 mL/min (>60); Est Glom Filt Rate - Afr Amer 86 mL/min (>60); Free T3 1.7 pg/mL (2.18-3.98); Globulin 4.7 g/dL (2.2-4.2); Glucose 120 mg/dL (74-106); Potassium 3.9 mmol/L (3.5-5.1); Protein, Total 8.1 g/dL (6.4-8.2); Sodium Level 138 mmol/L (136-145)
== END ==
PROVIDERS: PCP Family Medicine; Referring Provider Family Medicine; Visit Provider Family Medicine
DX: E11.9 Type 2 diabetes mellitus without complications (principal); E03.9 Hypothyroidism, unspecified
CPT/HCPCS: 36415; 80053; 84439; 84443; 84481

== ENCOUNTER → 2019-12-03 11:48 | Outpatient (CLI) | payer OTHER, SELFPAY ==
[2019-04-02 06:29] VITALS: BMI 27.6
[2019-12-03 15:02] LABS: Absolute Lymphocyte Count 2.01 X10^3/uL (0.83-4.51); Absolute Neutrophil Count 8.8 X10^3/uL (2.0-7.7); Basophil# 0.06 X10^3/uL; Basophil% 0.5 % (0-1); Eosinophil# 0.28 X10^3/uL; Eosinophils% 2.3 % (0-5); Hemoglobin 10.6 g/dL (12.0-15.0); Lymphocyte # 2.01 X10^3/ul (4.0); Lymphocyte % 16.6 % (19-41); Mean Corp Hgb Conc 30.3 g/dL (32-36); Mean Corpuscular Hgb 28.7 pg (27.0-32.0); Mean Corpuscular Volume 94.9 fL (81-99); Mean Platelet Vol. 8.9 fl (6.2-12.0); Monocyte# 0.91 X10^3/uL; Monocyte% 7.5 % (0-10); NRBC Flagged by Analyzer 0 % (0-5); Neutrophil # 8.77 X10^3/uL (2.7-7.7); Neutrophil % 72.4 % (47-70); POSITIVE COUNT YES; RBC Distribution Width CV 13.6 % (11.6-14.6); RBC Distribution Width SD 46.7 fl (35.1-43.9); Red Blood Count 3.69 M/mm3 (4.2-5.4); White Blood Count 12.1 K/mm3 (4.4-11.0)
[2019-12-03 15:06] LABS: Differential Indicated SCAN CRITERIA MET
[2019-12-03 15:24] LABS: Platelet Count 785 K/mm3 (150-450)
[2019-12-04 15:48] LABS: Pathologist Review Reviewed
== END ==
PROVIDERS: PCP Family Medicine; Visit Provider Family Medicine
DX: D64.9 Anemia, unspecified (principal)
CPT/HCPCS: 36415; 85025

== ENCOUNTER → 2019-12-17 11:09 | Outpatient (CLI) | payer OTHER, SELFPAY ==
[2019-04-02 06:29] VITALS: BMI 27.6
[2019-12-17 15:18] LABS: Absolute Lymphocyte Count 1.86 X10^3/uL (0.83-4.51); Absolute Neutrophil Count 4.6 X10^3/uL (2.0-7.7); Basophil# 0.05 X10^3/uL; Basophil% 0.7 % (0-1); Eosinophil# 0.22 X10^3/uL; Eosinophils% 2.9 % (0-5); Hematocrit 41.4 % (37-47); Hemoglobin 12.5 g/dL (12.0-15.0); Lymphocyte # 1.86 X10^3/ul (4.0); Lymphocyte % 24.9 % (19-41); Mean Corp Hgb Conc 30.2 g/dL (32-36); Mean Corpuscular Hgb 28.2 pg (27.0-32.0); Mean Corpuscular Volume 93.2 fL (81-99); Mean Platelet Vol. 9.7 fl (6.2-12.0); Monocyte# 0.73 X10^3/uL; Monocyte% 9.8 % (0-10); NRBC Flagged by Analyzer 0 % (0-5); Neutrophil # 4.59 X10^3/uL (2.7-7.7); Neutrophil % 61.4 % (47-70); Platelet Count 374 K/mm3 (150-450); RBC Distribution Width SD 47.9 fl (35.1-43.9); Red Blood Count 4.44 M/mm3 (4.2-5.4); White Blood Count 7.5 K/mm3 (4.4-11.0)
== END ==
PROVIDERS: PCP Family Medicine; Referring Provider Family Medicine; Visit Provider Family Medicine
DX: E03.9 Hypothyroidism, unspecified (principal)
CPT/HCPCS: 36415; 85025

== ENCOUNTER → 2020-01-27 11:18 | Outpatient (CLI) | payer OTHER, SELFPAY ==
[2019-04-02 06:29] VITALS: BMI 27.6
--- NOTE | 2020-01-27 11:24 | RAD_ITS ---
STUDY: X-RAY - LUMBAR SPINE REASON FOR EXAM: Female, 49 years old. post lumbar spinal fusion-November -- some right leg pain since yesterday TECHNIQUE: 3 view(s) of the lumbar spine were obtained. COMPARISON: CT scan 11/07/2019 FINDINGS: Since prior study there has been discectomy at L4-L5 and L5-S1 with bilateral pedicular screws and posterior rods at L4-L5 and S1. Normal lumbar lordosis. There is no substantial scoliosis. There is a grossly normal alignment of the vertebrae. Normal vertebral bodies and endplates. Normal disc space heights. There is no demonstrated fracture. The soft tissue structures are unremarkable. RAD/Lumbar Spine 2 or 3 Views IMPRESSION: Postsurgical changes at L4-L5 and L5-S1 with no acute abnormalities. Electronically Signed: Phuc Garza MD at 22:06 EST , Service support ,
== END ==
PROVIDERS: PCP Family Medicine
DX: M47.816 Spondylosis without myelopathy or radiculopathy, lumbar region (principal); Z98.1 Arthrodesis status
CPT/HCPCS: 72100

== ENCOUNTER 2020-01-27 15:00 | Outpatient (RCR) | payer OTHER, SELFPAY ==
--- NOTE | 2019-03-12 15:06 | MASS.EVAL_ITS ---
Massage Therapy Evaluation: Initial Evaluation Date: 03/08/2019 SUBJECTIVE: Ivanna is a 48 year old female who was referred to the [facility] facility for a massotherapy evaluation by Dr. Obrien with the diagnosis of fibromyalgia, back and neck pain. She presents today with the symptoms of pain, stiffness and tension in the neck, mid back, low back and hips. Ivanna reports of having back surgery in December and her pain has greatly decreased. OBJECTIVE: After examination and palpation, I found Ivanna to have high muscle tension with tenderness and myofascial restrictions in her sub occipitals, levator scapulae, trapezius, rhomboids, scalenes, and thoracic paraspinals. Her QL?s, lumbar paraspinals, piriformis, glute medius and minimus all were very tight with fascial restrictions, tender points and trigger points. The first treatment consisted of a one hour massage to her upper body and feet with myofascial release, muscle stripping, trigger point compression techniques, and cervical manual traction. ASSESSMENT: I feel that Ivanna is a good candidate for massotherapy at this time. She had a favorable response to the first treatment with reduction in her muscle aches, pain and tension. She also had improvement in her cervical flexibility and low back flexibility. PLAN: The plan of care was reviewed with the patient. The patient is to be seen on an as needed basis for a total of ten sessions with the recommendation of once every month for a one hour treatment.
--- NOTE | 2020-02-05 12:15 | DS.PCM_ITS ---
Massage Therapy Discharge Summary: Discharge Date: 02/05/2020 Ivanna was seen for a massotherapy evaluation on 03/08/2019 with the diagnosis of fibromyalgia, neck and shoulder pain. She was treated with eight sessions of massage therapy consisting of deep pressure soft tissue techniques, myofascial release and trigger point compression to her cervical, thoracic, lower back and hips. Ivanna responded well to the therapy by reporting decreased tension and pain throughout her neck, shoulders, lower back and feet. Her goals for therapy were met throughout the treatment sessions. At this time this patient is being discharged from our care at [facility] facility.
== END 2020-01-27 19:00 | disposition home or self-care (01) ==
LOC: MASS 15:00
PROVIDERS: Family Provider Family Medicine; PCP Family Medicine; Referring Provider Family Medicine; Visit Provider Family Medicine
DX: M79.7 Fibromyalgia (principal); M54.5 Low back pain; G89.29 Other chronic pain
CPT/HCPCS: 87426; 97124

== ENCOUNTER → 2020-01-28 15:04 | Outpatient (CLI) | payer OTHER, SELFPAY ==
[2019-04-02 06:29] VITALS: BMI 27.6
[2020-01-28 16:08] LABS: Free T3 2.4 pg/mL (2.18-3.98); T4 Free Direct 1.29 ng/dL (0.76-1.46); Thyroid Stim Hormone (TSH) 0.77 uIU/mL (0.358-3.74)
== END ==
PROVIDERS: PCP Family Medicine; Visit Provider Family Medicine
DX: E03.9 Hypothyroidism, unspecified (principal)
CPT/HCPCS: 36415; 84439; 84443; 84481

== ENCOUNTER 2020-02-12 14:16 | Outpatient (RCR) | payer OTHER, SELFPAY ==
[2019-04-02 06:29] VITALS: BMI 27.6
== END 2020-02-13 23:59 ==
LOC: EMPH 14:16
PROVIDERS: PCP Family Medicine; Referring Provider Family Medicine Geriatric Medicine; Visit Provider Family Medicine Geriatric Medicine
DX: Z03.818 Encounter for observation for suspected exposure to other biological agents ruled out (principal)

== ENCOUNTER 2020-02-13 09:00 | Outpatient (RCR) | payer OTHER, SELFPAY ==
[2019-04-02 06:29] VITALS: BMI 27.6
--- NOTE | 2019-12-18 12:33 | HP.PTEVAL ---
Patient's Visit Information JARRELL GOFF is a 49 year old F referred to Physical Therapy by SHRAVAN LUCERO with a diagnosis of S/P LUMBAR SPINAL FUSION. Date of Evaluation: 12/18/19 Physical Therapist: Chaim Hurtado, PT, Cert MDT, OCS - Visit Plan Frequency: 2x /Week Duration: 4 Weeks Plan: PT INTERVENTIONS POSTURAL EX'S ,DLS -ABD/BACK,LE FLEXABILITY,POSTURE/BODY MECHANICS,LE STRENGTHENING,GRADE ROM LUMBAR - Subjective This 49 y/o female presents to physical therapy with s/p L4-S decompression /fusion ON 11/19/[address] Bazzi at [facility] . Patient was in hospital for 5 days on 11/22/09. Patient was developed low blood presssure and drainage before d/c to home. Precautions no BLT/1/2 gallon milk and used fww intially. Prior to that patient had lumbar discetomy/laminectomy at [facility] Dec 17 2018. Patient has symmtrical no radicular symptoms but has right buttuck. Prior to surgery PT,MRI,epidural injections. Patient had h/o HNP lumbar. Patient c/o some parathesia buttuck right. Aggraveting ADLS' putting on shoes,sitting 30 mins,standing 30mins . Aleviating factors with rest walking. Bowel/bladder . Coughing /sneezing -. Patient lumbar surgery affects QOL and function . Patient symptoms affects ability to RTW. 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 SOCIAL: - Pain Bilateral Back Pain Intensity (Out of 10): 1 Pain Intensity Range: 10 - Objective POSTURE: mild foward posture. GAIT: recipocal pattern. INSCION: well aproximate. PALPATION: tender LS paraspinals. NEURO: denies parathesia/tingling,reflexes L3-4,L4-5,L5-S1 1/3. FLEXABLITY: hams mild/mod tight. MMT: right quads/hams /hip flexion 4-/5,left 4/5 ,ankle 4/5. LUMBAR ROM: flexion mod loss,extension mod loss,side glides mod loss, - Special Tests L/S Slump test left side: Negative L/S Slump test right side: Negative L/S Left Straight Leg Raise: Negative L/S Right Straight Leg Raise: Positive - Goals Goal 1:: I with HEP. Goal Time Frame: 4-6 Weeks Goal 2:: Improve posture/body mechanics for ADLS' Goal Time Frame: 4-6 Weeks Goal 3:: Deacrease lumbar pain by 75 % or > to improve function and RTW. Goal Time Frame: 4-6 Weeks Goal 4:: Patient to improve lumbar ROM for function of recovery Goal Time Frame: 4-6 Weeks Goal 5:: Patient to improve RLE 4/5 to improve gait and function Goal Time Frame: 4-6 Weeks Goal 6:: Patient to improve back owestry score by 5 points or> to improve QOL and RTW,. Goal Time Frame: 4-6 Weeks - Rehabilitation Potential Physical Therapy Diagnosis: This pateint underwent s/p L4-S1 decompression/fusion with pain ,decrease right LE strength,decrease ROM impairs ability to RTW and dl's Rehabilitation Potential: Good - Anticipated Interventions Patient/Client Instruction: Educate patient on: Condition, Plan of Care For the Purpose of:: To decrease pain, To increase ROM, To improve muscle performance and motor function, To improve ability to perform ADL's, To increase tolerance to activity/condition/position, To improve performance and independence with ADL's, To improve ability of physical actions for home/community/work/leisure, To improve health of tissue, To decrease soft tissue restriction, To increase flexibility/ROM, To improve ability to perform tasks related to life management Therapeutic Exercise to Include: Strength training, Body mechanics, Postural training, Flexibilty training, Dynamic Lumbar Stabilization Comment: QUADS/HAMS/HIP For the Purpose of:: To decrease pain, To increase ROM, To improve muscle performance and motor function, To improve ability to perform ADL's, To increase tolerance to activity/condition/position, To improve performance and independence with ADL's, To improve ability of physical actions for home/community/work/leisure, To improve health of tissue, To decrease soft tissue restriction, To increase flexibility/ROM, To improve ability to perform tasks related to life management TENS: Yes IF ES: Yes Cryotherapy (ice pack, ice massage): Yes Thermo therapy (hot pack): Yes For the Purpose of:: To decrease pain, To improve nutrient delivery to tissue, To increase oxygenation perfusion, To improve health of tissue Thank you for the opportunity to evaluate your patient. For Medicare and Medicare HMO plans, please review the plan of care and approve it. It will need to be FAXED BACK to us at [phone] for Medicare purposes. For Medicare only, by signing this I certify the plan of care. Please let me know if there are questions or concerns regarding this plan of care. Physician Signature: Date:
--- NOTE | 2020-02-13 09:27 | HP.PTDCSUM ---
It has been my pleasure to treat JARRELL GOFF referred by SHRAVAN LUCERO, with the diagnosis of S/P LUMBAR SPINAL FUSION for a total of 9 visit(s). Discharge Date: 02/13/20 Please see the following information for a summary of their discharge status. Subjective: Doing better .. last week working 12 hrs caused back pain and spasms. ready for d/c Bilateral Back Pain Intensity (Out of 10): 1 % Improvement: 75 Objective/Function: POSTURE: WFL. GAIT: RECIPROCAL PATTERN. MMT: QUADS/HAMS/HIP/ANKLE 4/5. LUMBAR ROM: FLEXION MIN LOSS,EXTENSION MIN LOSS Goal 1:: I with HEP. Goal Progress: Goal Met Goal 2:: Improve posture/body mechanics for ADLS' Goal Progress: Goal Met Goal 3:: Deacrease lumbar pain by 75 % or > to improve function and RTW. Goal Progress: Goal Met Goal 4:: Patient to improve lumbar ROM for function of recovery Goal Progress: Goal Met Goal 5:: Patient to improve RLE 4/5 to improve gait and function Goal Progress: Goal Met Goal 6:: Patient to improve back owestry score by 5 points or> to improve QOL and RTW,. Goal Progress: Goal Met Plan: D/C Discharge Comments: HEP If there are questions or concerns regarding this patient's physical therapy, please feel free to call me at [phone]. Thank you for the referral of this patient. Sincerely, Chaim Hurtado, PT, Cert MDT, OCS
== END 2020-02-13 19:00 | disposition home or self-care (01) ==
LOC: PT 09:00
PROVIDERS: PCP Family Medicine
DX: Z98.1 Arthrodesis status (principal)
CPT/HCPCS: 97110; 97162

== ENCOUNTER → 2020-02-28 09:59 | Outpatient (CLI) | payer OTHER, SELFPAY ==
[2019-04-02 06:29] VITALS: BMI 27.6
--- NOTE | 2020-02-28 10:01 | BI_ITS ---
MAMMOGRAPHY - BILATERAL SCREENING REASON FOR EXAM: Female, 49 years old. Routine annual screening examination. PERTINENT HISTORY: Non-contributory. History of prior bilateral breast reduction surgery. TECHNIQUE: Digital bilateral breast mamie (3D mammographic acquisition) in the CC and MLO projections. 2-D mediolateral oblique (MLO) and craniocaudad (CC) views of both breasts were obtained. CAD: Full Field Digital Mammography with Computer Added Detection was performed. COMPARISON: Comparison is made with prior examination dated 02/19/2019 and 02/16/2018. FINDINGS: Breast Composition: The breasts are heterogeneously dense, which may obscure small masses. There are no dominant masses or suspicious calcifications. No other significant abnormalities are identified. There has been no significant change since the prior study. BI/SCRN MAMM (CAD)W/MAMIE BILAT IMPRESSION: Stable bilateral screening mammogram. Yearly follow-up mammogram recommended. (A) ASSESSMENT CATEGORY: BIRADS Category 1: Negative. A letter regarding these results will be sent to the patient by the facility within 30 days. Approximately 10% of breast cancers are not detected by mammography. A normal mammogram should not delay biopsy of a clinically suspicious abnormality. [id number] Electronically Signed: Stephane Dinh, at 10:57 EST , Service support ,
== END ==
PROVIDERS: PCP Family Medicine; Referring Provider Family Medicine; Visit Provider Family Medicine
DX: Z12.31 Encounter for screening mammogram for malignant neoplasm of breast (principal)
CPT/HCPCS: 77063; 77067

== ENCOUNTER 2020-06-12 13:56 | Outpatient (RCR) | payer OTHER, SELFPAY ==
[2019-04-02 06:29] VITALS: BMI 27.6
== END 2020-06-12 23:59 ==
LOC: EMPH 13:56
PROVIDERS: PCP Family Medicine; Referring Provider Family Medicine Geriatric Medicine; Visit Provider Family Medicine Geriatric Medicine
DX: Z03.818 Encounter for observation for suspected exposure to other biological agents ruled out (principal)
CPT/HCPCS: 87426

== ENCOUNTER → 2020-07-01 16:36 | Outpatient (CLI) | payer OTHER, SELFPAY ==
[2020-07-01 16:31] VITALS: BMI 27.6
--- NOTE | 2020-07-01 16:37 | RAD_ITS ---
STUDY: X-RAY - RIGHT ELBOW REASON FOR EXAM: Female, 50 years old. right elbow pain TECHNIQUE: 3 view(s) of the elbow. COMPARISON: None. FINDINGS: Normal visualized humerus, radius and ulna. Normal radiocapitellar and ulnotrochlear articulations. The soft tissue structures are unremarkable. There is no demonstrated fracture. RAD/Elbow min 3 Views IMPRESSION: Normal x-ray examination of the elbow. Electronically Signed: Abhinav Calderon MD at 18:03 EDT , Service support ,
== END ==
PROVIDERS: PCP Family Medicine; Referring Provider Physician Assistant; Visit Provider Physician Assistant
DX: M25.521 Pain in right elbow (principal)
CPT/HCPCS: 73080

== ENCOUNTER 2020-08-05 11:15 | Outpatient (RCR) | payer OTHER, SELFPAY ==
[2019-04-02 06:29] VITALS: BMI 27.6
[2020-07-01 16:31] VITALS: BMI 27.6
== END 2020-08-12 23:59 ==
LOC: EMPH 11:15
PROVIDERS: PCP Family Medicine; Referring Provider Family Medicine Geriatric Medicine; Visit Provider Family Medicine Geriatric Medicine
DX: Z03.818 Encounter for observation for suspected exposure to other biological agents ruled out (principal)
CPT/HCPCS: 87426

== ENCOUNTER 2020-10-13 12:27 | Outpatient (RCR) | payer OTHER, SELFPAY ==
[2020-07-01 16:31] VITALS: BMI 27.6
== END 2020-10-13 23:59 ==
LOC: EMPH 12:27
PROVIDERS: PCP Family Medicine; Referring Provider Family Medicine Geriatric Medicine; Visit Provider Family Medicine Geriatric Medicine
DX: Z03.818 Encounter for observation for suspected exposure to other biological agents ruled out (principal)
CPT/HCPCS: 87426; 87635; U0005; U0003

== ENCOUNTER → 2020-11-18 09:12 | Outpatient (CLI) | payer OTHER, SELFPAY ==
[2020-11-18 11:22] LABS: T4 Free Direct 1.22 ng/dL (0.76-1.46); Thyroid Stim Hormone (TSH) 0.76 uIU/mL (0.358-3.74)
== END ==
PROVIDERS: PCP Family Medicine; Referring Provider Family Medicine; Visit Provider Family Medicine
DX: E03.9 Hypothyroidism, unspecified (principal)
CPT/HCPCS: 36415; 84439; 84443

== ENCOUNTER 2020-11-30 17:45 | Outpatient (RCR) | payer OTHER, SELFPAY ==
[2019-04-02 06:29] VITALS: BMI 27.6
--- NOTE | 2020-02-29 11:49 | MASS.EVAL ---
Massage Therapy Evaluation: Initial Evaluation Date: 02/28/2020 SUBJECTIVE: Ivanna is a 49 year old female who was referred to the [facility] facility for a massotherapy evaluation by Dr. Obrien with the diagnosis of radiculopathy and lumbar intervertebral disc displacement She presents today with the symptoms of pain, stiffness and tension in the low back with some nerve sensations down her leg. Long work hours are hard for her to do. OBJECTIVE: Upon observation Ivanna has some posture issues with her head and shoulders forward from the neutral position in sitting and standing. After examination and palpation, I found Ivanna to have high muscle tension with tenderness and myofascial restrictions in her sub occipitals, levator scapulae, trapezius, rhomboids, scalenes, and thoracic paraspinals. Her QL?s, lumbar paraspinals, piriformis, glute medius and minimus all were very tight with fascial restrictions, tender points and trigger points. I also noticed that the patient had some swelling around her incision in her low back. The first treatment consisted of a one hour massage to her upper body and feet with myofascial release, muscle stripping, trigger point compression techniques, and cervical manual traction. ASSESSMENT: I feel that Ivanna is a good candidate for massotherapy at this time. Massage has helped her greatly in the past. PLAN: The plan of care was reviewed with the patient. The patient is to be seen on an as needed basis for a total of ten sessions with the recommendation of once every month for a one hour treatment.
--- NOTE | 2020-12-01 06:48 | MASS.DISCH ---
Massage Therapy Discharge Summary: Discharge Date: 11/30/2020 Ivanna was seen for a massotherapy evaluation on 02/28/2020 with the diagnosis of fibromyalgia. She was treated with ten sessions of massage therapy consisting of deep pressure soft tissue techniques, myofascial release and trigger point compression to hier cervical, thoracic, lower back, hips and feet. Ivanna responded well to the therapy by reporting decreased tension and pain throughout her neck, shoulders, lower back and hips. Hergoals for therapy were met throughout the treatment sessions. At this time this patient is being discharged from our care at [facility] facility.
== END 2020-11-30 19:00 | disposition home or self-care (01) ==
LOC: MASS 17:45
PROVIDERS: PCP Family Medicine; Visit Provider Family Medicine
DX: M54.16 Radiculopathy, lumbar region (principal); M51.26 Other intervertebral disc displacement, lumbar region
CPT/HCPCS: 97124

== ENCOUNTER 2020-12-22 08:59 | Outpatient (RCR) | payer OTHER, SELFPAY ==
[2020-10-14 00:14] VITALS: BMI 27.6
== END 2021-01-12 23:59 ==
LOC: EMPH 08:59
PROVIDERS: PCP Family Medicine; Referring Provider Family Medicine Geriatric Medicine; Visit Provider Family Medicine Geriatric Medicine
DX: Z03.818 Encounter for observation for suspected exposure to other biological agents ruled out (principal)
CPT/HCPCS: 87426

== ENCOUNTER 2021-01-19 12:51 | Outpatient (RCR) | payer OTHER, SELFPAY ==
[2021-01-13 00:04] VITALS: BMI 27.6
== END 2021-02-12 23:59 ==
LOC: EMPH 12:51
PROVIDERS: PCP Family Medicine; Referring Provider Family Medicine Geriatric Medicine; Visit Provider Family Medicine Geriatric Medicine
DX: Z03.818 Encounter for observation for suspected exposure to other biological agents ruled out (principal)
CPT/HCPCS: 87426; 87635; U0003

== ENCOUNTER 2021-03-10 17:30 | Outpatient (CLI) | payer OTHER, SELFPAY ==
--- NOTE | 2021-03-10 17:41 | MRI_ITS ---
STUDY: MRI LUMBAR SPINE WITHOUT CONTRAST REASON FOR EXAM: Female, 50 years old. Back pain into thighs bilaterally. TECHNIQUE: Standardized fat and water weighted pulse sequences were obtained in the sagittal and axial planes. COMPARISON: MRI lumbar spine without contrast 09/25/2019. CT lumbar spine without contrast 11/07/2019. FINDINGS: T11-T12 and T12-L1: (Sagittal only). Normal endplates. Normal disc height, hydration and morphology. No ventral extradural defect. Normal central canal and bilateral intervertebral neural foramina. Normal lumbar lordosis. There is no substantial scoliosis. Normal conus medullaris that terminates at the upper L1 vertebral body level. L1-2: Normal endplates. Normal disc height, hydration and morphology. Normal bilateral facet joints. Normal central canal and bilateral lateral recesses. Normal bilateral intervertebral neural foramina. L2-3: Normal endplates. Normal disc height, hydration and morphology. Normal bilateral facet joints. Normal central canal and bilateral lateral recesses. Normal bilateral intervertebral neural foramina. L3-4: Normal endplates. Mild disc space height narrowing. Mild degenerative retrolisthesis of L3 on L4 has increased slightly. Mild bilateral degenerative facet arthropathy. Moderately pronounced central canal stenosis with an AP canal diameter of 6.6 mm, previously 11.3 mm. Normal bilateral lateral recesses. Mild stenosis of the right intervertebral neural foramen. Normal left intervertebral neural foramen. L4-5: Disc implant inside the disc space. Pedicular screws and rods causing some signal distortion artifacts. Postsurgical absence of the spinous processes and lamina. Capacious thecal sac and normal bilateral lateral recesses. Normal bilateral intervertebral neural foramina. L5-S1: Disc implant inside the disc space. Pedicular screws and rods causing some signal distortion artifacts. Postsurgical absence of the spinous processes and lamina. Capacious central canal. Normal bilateral lateral recesses. Normal bilateral intervertebral neural foramina. Normal visualized sacral ala. Normal visualized paraspinous soft tissue structures. MRI/Spine Lumbar (Routine) IMPRESSION: 1. Moderately pronounced central canal stenosis at L3-L4 disc space level with an AP canal diameter of 6.6 mm, previously 11.3 mm. This is secondary to mild increase in degenerative retrolisthesis of L3 on L4. 2. Capacious central canal at L4-L5 and L5-S1 disc space levels following anterior interbody fusion and posterior decompression laminectomy and fusion surgery when compared to 09/25/2019. 3. No MRI evidence of lumbar extruded disc fragment. Electronically Signed: Santos Collins MD at 8:56 EST ,
== END 2021-03-10 23:59 | disposition short-term general hospital (02) ==
LOC: MRI 17:31
PROVIDERS: PCP Family Medicine; Visit Provider Anesthesiology Pain Medicine
DX: M54.17 Radiculopathy, lumbosacral region (principal); M96.1 Postlaminectomy syndrome, not elsewhere classified
CPT/HCPCS: 72148

== ENCOUNTER 2021-03-15 09:01 | Outpatient (RCR) | payer OTHER, SELFPAY ==
[2021-02-13 00:08] VITALS: BMI 27.6
== END 2021-03-15 23:59 ==
LOC: EMPH 09:01
PROVIDERS: PCP Family Medicine; Referring Provider Family Medicine Geriatric Medicine; Visit Provider Family Medicine Geriatric Medicine
DX: Z03.818 Encounter for observation for suspected exposure to other biological agents ruled out (principal)
CPT/HCPCS: 87426

== ENCOUNTER 2021-04-05 09:06 | Outpatient (CLI) | payer OTHER, SELFPAY ==
[2021-03-30 08:45] LABS: Erythrocyte Sedimentation Rate 16 mm/hr (0-30)
[2021-03-30 09:00] LABS: CRP 6.22 mg/L (0.0-3.0); LDH 212 U/L (84-246)
--- NOTE | 2021-04-05 09:06 | RAD_ITS ---
STUDY: X-RAY - LUMBAR SPINE REASON FOR EXAM: Female, 50 years old. Low back pain TECHNIQUE: 3 view(s) of the lumbar spine were obtained. COMPARISON: 01/27/2020 FINDINGS: Stable cervical hardware at L4-L5 and S1 from previous pedicle screw fusion surgery, discectomy and laminectomy. Normal lumbar lordosis. There is no substantial scoliosis. There is a normal alignment of the vertebrae from L1 to L3. There is 3 to 4 mm of stable anterior subluxation of L4 and L3. Normal vertebral bodies and endplates. Disc spaces are well preserved except at L3-4. There is no demonstrated fracture. The soft tissue structures are unremarkable. RAD/Lumbar Spine 2 or 3 Views IMPRESSION: Stable degenerative and postsurgical changes in the lumbar spine, no acute findings or significant change since the previous study. Electronically Signed: Artemio Nuno MD at 16:37 EST ,
--- NOTE | 2021-04-05 09:34 | BI_ITS ---
MAMMOGRAPHY - BILATERAL SCREENING REASON FOR EXAM: Female, 50 years old. Routine annual screening examination. PERTINENT HISTORY: Non-contributory. History of prior bilateral breast reduction surgery. TECHNIQUE: Digital bilateral breast mamie (3D mammographic acquisition) in the CC and MLO projections. 2-D mediolateral oblique (MLO) and craniocaudad (CC) views of both breasts were obtained. CAD: Full Field Digital Mammography with Computer Added Detection was performed. COMPARISON: Comparison is made with prior examination dated 08/27/2020 and 02/19/2019. FINDINGS: Breast Composition: The breasts are heterogeneously dense, which may obscure small masses. There are no dominant masses or suspicious calcifications. Stable small benign appearing bilateral axillary nodes. No other significant abnormalities are identified. There has been no significant change since the prior study. BI/SCRN MAMM (CAD)W/MAMIE BILAT IMPRESSION: Stable bilateral screening mammogram. Yearly follow-up mammogram recommended. (A) ASSESSMENT CATEGORY: BIRADS Category 2: Benign. A letter regarding these results will be sent to the patient by the facility within 30 days. Approximately 10% of breast cancers are not detected by mammography. A normal mammogram should not delay biopsy of a clinically suspicious abnormality. [id number] Electronically Signed: Stephane Dinh MD at 10:15 EST ,
== END 2021-04-05 23:59 | disposition home or self-care (01) ==
LOC: OPBI 09:07
PROVIDERS: PCP Family Medicine; Referring Provider Family Medicine; Visit Provider Family Medicine
DX: Z12.31 Encounter for screening mammogram for malignant neoplasm of breast (principal); M54.50 Low back pain, unspecified; M25.50 Pain in unspecified joint
CPT/HCPCS: 36415; 72100; 77063; 77067; 83615; 85652; 86140

== ENCOUNTER → 2022-03-31 | Outpatient (CLI) | payer OTHER, SELFPAY ==
[2022-03-31 12:09] LABS: Erythrocyte Sedimentation Rate 9 mm/hr (0-30)
[2022-03-31 12:12] LABS: Absolute Lymphocyte Count 1.84 X10^3/uL (0.83-4.51); Absolute Neutrophil Count 5.8 X10^3/uL (2.0-7.7); Basophil# 0.06 X10^3/uL; Basophil% 0.7 % (0-1); Eosinophil# 0.24 X10^3/uL; Eosinophils% 2.8 % (0-5); Hematocrit 46.1 % (37-47); Hemoglobin 14.7 g/dL (12.0-15.0); Lymphocyte # 1.84 X10^3/ul (0.83-4.51); Lymphocyte % 21.4 % (19-41); Mean Corp Hgb Conc 31.9 g/dL (32-36); Mean Corpuscular Hgb 28.5 pg (27.0-32.0); Mean Corpuscular Volume 89.5 fL (81-99); Mean Platelet Vol. 9.6 fl (6.2-12.0); Monocyte# 0.63 X10^3/uL; Monocyte% 7.3 % (0-10); NRBC Flagged by Analyzer 0 % (0-5); Neutrophil # 5.81 X10^3/uL (2.7-7.7); Neutrophil % 67.6 % (47-70); Platelet Count 417 K/mm3 (150-450); RBC Distribution Width CV 14.2 % (11.6-14.6); RBC Distribution Width SD 46.7 fl (35.1-43.9); Red Blood Count 5.15 M/mm3 (4.2-5.4); White Blood Count 8.6 K/mm3 (4.4-11.0)
[2022-03-31 13:07] LABS: ALB/GLOB Ratio 0.9 RATIO (0.9-2.4); AST(SGOT) 16 U/L (15-37); Alanine Aminotransfer ALT/SGPT 19 U/L (13-56); Albumin, Serum 4.1 g/dL (3.2-5.0); Alkaline Phosphatase 91 U/L (45-117); Anion Gap 7 (5-15); BUN 11 mg/dL (7-18); BUN/Creat Ratio 12.7 RATIO (10-20); Calcium,Total 9.8 mg/dL (8.5-10.1); Chloride 107 mmol/L (98-107); Creatinine, Serum 0.87 mg/dL (0.55-1.02); EST Glomerular Filtration Rate 72 mL/min (>60); Est Glom Filt Rate - Afr Amer 87 mL/min (>60); Free T3 2.1 pg/mL (2.18-3.98); Globulin 4.4 g/dL (2.2-4.2); Glucose 119 mg/dL (74-106); Potassium 3.8 mmol/L (3.5-5.1); Protein, Total 8.5 g/dL (6.4-8.2); Sodium Level 142 mmol/L (136-145); T4 Free Direct 1.11 ng/dL (0.76-1.46); Thyroid Stim Hormone (TSH) 6.57 uIU/mL (0.358-3.74)
== END | disposition home or self-care (01) ==
PROVIDERS: PCP Family Medicine; Visit Provider Family Medicine
DX: E03.9 Hypothyroidism, unspecified (principal); M25.50 Pain in unspecified joint; Z51.81 Encounter for therapeutic drug level monitoring
CPT/HCPCS: 36415; 80053; 84439; 84443; 84481; 85025; 85652; 86140

== ENCOUNTER → 2022-04-11 | Outpatient (CLI) | payer OTHER, SELFPAY ==
--- NOTE | 2022-04-11 14:27 | BI_ITS ---
MAMMOGRAPHY - BILATERAL SCREENING REASON FOR EXAM: Female, 52 years old. Routine annual screening examination. PERTINENT HISTORY: Non-contributory. History of prior bilateral breast reduction surgery. TECHNIQUE: Digital bilateral breast mamie (3D mammographic acquisition) in the CC and MLO projections. 2-D mediolateral oblique (MLO) and craniocaudad (CC) views of both breasts were obtained. CAD: Full Field Digital Mammography with Computer Added Detection was performed. COMPARISON: Comparison is made with prior study of 04/05/2021 and 02/28/2020. FINDINGS: Breast Composition: The breasts are heterogeneously dense, which may obscure small masses. There are no dominant masses or suspicious calcifications. Stable small benign-appearing bilateral axillary. No other significant abnormalities are identified. There has been no significant change since the prior study. BI/SCRN MAMM (CAD)W/MAMIE BILAT IMPRESSION: Stable bilateral screening mammogram. Yearly follow-up mammogram recommended. (A) ASSESSMENT CATEGORY: BIRADS Category 2: Benign. A letter regarding these results will be sent to the patient by the facility within 30 days. Approximately 10% of breast cancers are not detected by mammography. A normal mammogram should not delay biopsy of a clinically suspicious abnormality. [id number] Electronically Signed: Stephane Dinh MD at 15:20 EST ,
== END | disposition home or self-care (01) ==
LOC: OPBI 09:26
PROVIDERS: PCP Family Medicine; Referring Provider Obstetrics & Gynecology; Visit Provider Obstetrics & Gynecology
DX: Z12.31 Encounter for screening mammogram for malignant neoplasm of breast (principal)
CPT/HCPCS: 77063; 77067

== ENCOUNTER → 2022-05-19 | Outpatient (CLI) | payer OTHER, SELFPAY ==
[2022-05-19 12:09] LABS: Progesterone Level < 0.21 ng/mL (See Comment)
[2022-05-19 12:41] LABS: Estradiol < 11.0 pg/mL; Rheumatoid Factor < 10.0 IU/mL (<15)
[2022-05-20 15:28] LABS: ANTINUCLEAR ANTIBODIES DIRECT Negative (Negative)
== END | disposition home or self-care (01) ==
LOC: LAB 10:15
PROVIDERS: PCP Family Medicine; Referring Provider Family Medicine; Visit Provider Family Medicine
DX: M25.50 Pain in unspecified joint (principal); N95.9 Unspecified menopausal and perimenopausal disorder
CPT/HCPCS: 36415; 82670; 84144; 86038; 86431

== ENCOUNTER → 2022-06-06 | Outpatient (CLI) | payer OTHER, SELFPAY ==
[2022-06-06 12:38] LABS: Free T3 2.1 pg/mL (2.18-3.98); T4 Free Direct 1.18 ng/dL (0.76-1.46); Thyroid Stim Hormone (TSH) 6.14 uIU/mL (0.358-3.74)
== END | disposition home or self-care (01) ==
LOC: MTLAB 10:30
PROVIDERS: PCP Family Medicine; Referring Provider Family Medicine; Visit Provider Family Medicine
DX: E03.9 Hypothyroidism, unspecified (principal)
CPT/HCPCS: 36415; 84439; 84443; 84481

== ENCOUNTER → 2022-08-19 | Outpatient (CLI) | payer OTHER, SELFPAY ==
--- NOTE | 2022-08-19 10:02 | STE_ITS ---
Reason For Study: FAMILY HX, Stress Results Protocol: John Protocol Maximum Predicted HR: 166 bpm Target HR: 141 bpm % Maximum Predicted HR: 88 % DurationHeart Rate Stage (mm:ss) (bpm) BP BASELINE 90 132/80 STAGE 1 3:00 105 122/64 STAGE 2 3:00 117 132/64 STAGE 3 3:00 146 162/68 RECOVERY 100 132/80 Stress Duration: 9:00 mm:ss Maximum Stress HR: 146 bpm Baseline Echocardiogram Findings Stress Echo Wall motion Data Resting WM Intermediate WM Stress WM ECHO/Stress Test Echo w/o Contrast Interpretation Summary Stress echo. 52-year-old lady with a history of family history of high blood pressure Resting EKG demonstrates normal sinus rhythm with a rate of 86 bpm normal inter vals are noted. Resting blood pressure is 132/80. The patient exercised according to regular Br uce protocol for total duration of 9 minutes. The maximum heart rate attained was 146 bpm which was 87% of max impacted heart rate the maximum workload was 10.1 metabolic equivalents. At res t there were no ST or T wave changes noted suggest ischemia and at peak exercise no ST or T wave pisano ges were noted which did not meet criteria for ischemia. The peak blood pressure was 162/68 mmHg. Go od blood pressure response to exercise was noted. Stress echocardiogram. Resting echocardiogram demonstrated preserved left ventr icular systolic function estimated ejection fraction of 60% was noted. At peak exercise there w as thickening of all omntejo and reduction of low ventricular cavity size and peaking of ejection frac tion at 70%. No wall motion abnormalities were noted. Conclusion: Exercise stress echo with no EKG criteria for ischemia at a high workload. Preserved ejection fraction at rest and with exercise. Ordering Physician: Samra Obrien Referring Physician: Samra Obrien Performed By: Marisol Haddad, KAYKAY, RVT
[2022-08-19 10:44] LABS: Absolute Lymphocyte Count 1.81 X10^3/uL (0.83-4.51); Absolute Neutrophil Count 4.9 X10^3/uL (2.0-7.7); Basophil# 0.05 X10^3/uL; Basophil% 0.6 % (0-1); Eosinophil# 0.38 X10^3/uL; Eosinophils% 4.8 % (0-5); Hematocrit 44.5 % (37-47); Hemoglobin 14.5 g/dL (12.0-15.0); Lymphocyte # 1.81 X10^3/ul (0.83-4.51); Lymphocyte % 22.8 % (19-41); Mean Corp Hgb Conc 32.6 g/dL (32-36); Mean Corpuscular Hgb 28.7 pg (27.0-32.0); Mean Corpuscular Volume 88.1 fL (81-99); Mean Platelet Vol. 9.5 fl (6.2-12.0); Monocyte% 10.1 % (0-10); NRBC Flagged by Analyzer 0 % (0-5); Neutrophil # 4.87 X10^3/uL (2.7-7.7); Neutrophil % 61.3 % (47-70); Platelet Count 382 K/mm3 (150-450); RBC Distribution Width CV 13.1 % (11.6-14.6); RBC Distribution Width SD 42.4 fl (35.1-43.9); Red Blood Count 5.05 M/mm3 (4.2-5.4); White Blood Count 7.9 K/mm3 (4.4-11.0)
[2022-08-19 11:23] LABS: ALB/GLOB Ratio 0.9 RATIO (0.9-2.4); AST(SGOT) 23 U/L (15-37); Alanine Aminotransfer ALT/SGPT 24 U/L (13-56); Albumin, Serum 3.9 g/dL (3.2-5.0); Alkaline Phosphatase 90 U/L (45-117); Anion Gap 4 (5-15); BUN 12 mg/dL (7-18); BUN/Creat Ratio 15.6 RATIO (10-20); Calcium,Total 9.5 mg/dL (8.5-10.1); Chloride 103 mmol/L (98-107); Cholesterol 220 mg/dL (200); Creatinine, Serum 0.77 mg/dL (0.55-1.02); EST Glomerular Filtration Rate 83 mL/min (>60); Est Glom Filt Rate - Afr Amer 100 mL/min (>60); Free T3 3.9 pg/mL (2.18-3.98); Globulin 4.2 g/dL (2.2-4.2); Glucose 104 mg/dL (74-106); High Density Lipoprotein 57 mg/dL; Potassium 4.8 mmol/L (3.5-5.1); Protein, Total 8.1 g/dL (6.4-8.2); Sodium Level 136 mmol/L (136-145); T4 Free Direct 1.81 ng/dL (0.76-1.46); Thyroid Stim Hormone (TSH) 0.01 uIU/mL (0.358-3.74); Triglycerides 140 mg/dL; Very Low Density Lipoprotein 28 mg/dL (5-40)
== END | disposition home or self-care (01) ==
LOC: CVS 09:49
PROVIDERS: PCP Family Medicine; Referring Provider Family Medicine; Visit Provider Family Medicine
DX: R07.9 Chest pain, unspecified (principal); Z82.49 Family history of ischemic heart disease and other diseases of the circulatory system; E03.9 Hypothyroidism, unspecified; I10 Essential (primary) hypertension; Z51.81 Encounter for therapeutic drug level monitoring
CPT/HCPCS: 36415; 80053; 80061; 84439; 84443; 84481; 85025; 93017; 93350; Q9957; A4216

== ENCOUNTER → 2022-08-30 | Outpatient (CLI) | payer OTHER, SELFPAY ==
--- NOTE | 2022-08-30 07:31 | CT_ITS ---
STUDY: CT CHEST WITHOUT CONTRAST REASON FOR EXAM: Female, 52 years old. HTN/HYPERLIPIDEMIA. Over read examination. RADIATION DOSAGE (If Supplied By Facility): CTDIvol = ( 12.19 ) mGy, DLP = ( 195.04 ) mGycm TECHNIQUE: Transaxial imaging was performed without the administration of intravenous contrast material. Individualized dose optimization techniques were used for this CT. COMPARISON: No relevant priors. FINDINGS: CHEST Calcified granuloma in the left lower lobe. There is no demonstrated pleural abnormality. There are calcifications of the coronary arteries. Calcified mediastinal lymph nodes. Calcified left hilar lymph nodes. Normal unenhanced pulmonary arteries. Normal aorta arch and descending thoracic aorta. Normal osseous structures. Small hiatal hernia. Status post partial gastrectomy. CT/Limited Chest CT Cardiac Only IMPRESSION: Coronary artery calcification. Calcified left hilar and mediastinal lymph nodes. Calcified left lower lobe granuloma. Electronically Signed: Stephane Dinh MD at 10:02 EDT ,
--- NOTE | 2022-08-30 14:53 | CA.SCORE ---
Calcium Scoring Date of Study:: 08/30/22 Indications Indications: Strong family history and hypertension Coronary Calcium Scoring: High-resolution Computed Tomographic imaging of the chest was performed on [08/30/2022], with particular attention paid to the coronary arteries. Images from the examination were analyzed for the presence and extent of coronary artery calcification , using coronary calcium quantification software. The patient tolerated the procedure well and there were no complications. The results of the coronary calcification analysis are provided below. Findings Coronary Artery Left Main (LM): 0 Left Anterior Descending (LAD): 4 Left Circumflex (LCX): 0 Right Coronary Artery (RCA): 0 Total Agatston Score: 4 Percentile Rankin-75th percentile Calcium Scoring Interpretation: Different methods to categorize the overall amount of coronary plaque. Overall amount CAC SIS Visual of coronary plaque P1 Mild -100 <2 1-2 vessels with mild amount of plaque P2 Moderate 101-300 3-4 1-2 vessels with moderate amount, 3 vessels with mild amount of plaque P3 Severe 301-999 5-7 3 vessels with moderate amount, 1 vessel with severe amount of plaque P4 Extensive >1000 >8 2-3 vessels with severe amount of plaque Conclusion: Minimal atherosclerotic plaquing noted. Low risk.
== END | disposition home or self-care (01) ==
PROVIDERS: PCP Family Medicine; Referring Provider Family Medicine; Visit Provider Family Medicine
DX: I10 Essential (primary) hypertension (principal); E11.9 Type 2 diabetes mellitus without complications; Z82.49 Family history of ischemic heart disease and other diseases of the circulatory system; E78.5 Hyperlipidemia, unspecified
CPT/HCPCS: 75571; 76380

== ENCOUNTER 2022-09-30 12:17 | Day surgery (SDC) | payer OTHER, SELFPAY ==
[2022-09-30 12:39] VITALS: BP 136/65; PULSE 84; RESP 16; TEMP 36.5; O2SAT 96; BMI 28.6
[2022-09-30] MEDS: Lactated Ringers 1,000 ML 15 ML IV (12:42)
[2022-09-30] MEDS: Cefazolin 2 GM in 0.9% Normal Saline 100 ML IV (15:26)
--- NOTE | 2022-09-30 15:40 | RAD_ITS ---
STUDY: X-RAY - LUMBAR SPINE REASON FOR EXAM: Female, 52 years old. INSERTION SPINAL CORD STIMULATOR TECHNIQUE: AP and lateral fluoroscopic view(s) of the lumbar spine were obtained. 10 cc images. 417 seconds thoracic spine. COMPARISON: None FINDINGS: Neurostimulator device identified with leads seen extending to the lower thoracic spine . Limited information: Images. RAD/Lumbar Spine 2 or 3 Views IMPRESSION: Fluoroscopic guidance for neurostimulator device insertion. Electronically Signed: Marck Mandel (Brooks), at 19:34 EDT ,
[2022-09-30] MEDS: Bupivacaine 0.25% 30 ML Vial (16:35)
[2022-09-30] MEDS: Lidocaine 0.5%/Epi 1:200 (50ml 50 ML Vial INFILT (16:36)
[2022-09-30 17:08] VITALS: BP 136/65; BP 143/75; PULSE 97; RESP 18; TEMP 36.3; O2SAT 96
[2022-09-30 17:15] VITALS: BP 136/65; BP 140/81; PULSE 98; RESP 12; O2SAT 99
[2022-09-30 17:28] VITALS: BP 136/65; BP 148/86; PULSE 95; RESP 18; TEMP 36.3; O2SAT 100
[2022-09-30 17:46] VITALS: BP 136/65
== END 2022-09-30 17:49 | disposition home or self-care (01) ==
LOC: SDC 12:17 → AC 12:18
PROVIDERS: PCP Family Medicine; Referring Provider Anesthesiology Pain Medicine; Visit Provider Anesthesiology Pain Medicine
PROC: (CPT 63685; principal; 2022-09-30 13:35)
DX: M54.16 Radiculopathy, lumbar region (principal); E11.9 Type 2 diabetes mellitus without complications; M54.50 Low back pain, unspecified; I10 Essential (primary) hypertension; E03.9 Hypothyroidism, unspecified; F32.A Depression, unspecified; M99.01 Segmental and somatic dysfunction of cervical region; M99.03 Segmental and somatic dysfunction of lumbar region; M99.05 Segmental and somatic dysfunction of pelvic region; M99.02 Segmental and somatic dysfunction of thoracic region; M51.36 Other intervertebral disc degeneration, lumbar region; M79.7 Fibromyalgia; Z79.82 Long term (current) use of aspirin; M96.1 Postlaminectomy syndrome, not elsewhere classified
CPT/HCPCS: 63685; 63650; 00300; 72100; 76000; C1778; J7120; J2405

== ENCOUNTER → 2022-11-29 | Outpatient (CLI) | payer OTHER, SELFPAY ==
[2022-11-29 08:18] LABS: Free T3 4.2 pg/mL (2.18-3.98); T4 Free Direct 1.93 ng/dL (0.76-1.46); Thyroid Stim Hormone (TSH) < 0.01 uIU/mL (0.358-3.74)
== END | disposition home or self-care (01) ==
PROVIDERS: PCP Family Medicine; Referring Provider Family Medicine; Visit Provider Family Medicine
DX: E03.9 Hypothyroidism, unspecified (principal)
CPT/HCPCS: 36415; 84439; 84443; 84481

== ENCOUNTER → 2023-01-16 | Outpatient (CLI) | payer OTHER, SELFPAY ==
[2023-01-16 17:13] LABS: Glucose, Dipstick Normal (Normal); Ketone-Dipstick Negative (Negative); Leukocyte Esterase-Dipstick 100 /ul (Negative); Nitrite-Dipstick Positive (Negative); Occult Blood-Urine 50 /ul (Negative); Protein-Dipstick 30 mg/dl (Negative); Urine Bilirubin Dipstick Negative (Negative); Urine Urobilinogen Normal (Normal)
[2023-01-16 17:14] LABS: Color, Urine Yellow (Yellow)
[2023-01-16 17:15] LABS: Urine Clarity Cloudy (Clear)
[2023-01-16 17:24] LABS: Bacteria 1+ /hpf (None Seen); Mucous, Urine RARE /hpf (<or=2+); Red Blood Cells-Urine 0-5 SEEN /hpf (0-5); Squamous Epithelial Cells - UA 0-5 SEEN /hpf (5-10); White Blood Cells 25-50 SEEN /hpf (0-5)
== END | disposition home or self-care (01) ==
LOC: LABSPEC 15:47
PROVIDERS: Referring Provider Physician Assistant; Visit Provider Physician Assistant
DX: R30.0 Dysuria (principal)
CPT/HCPCS: 81001; 87077; 87086; 87088; 87186

== ENCOUNTER → 2023-02-03 | Outpatient (CLI) | payer OTHER, SELFPAY | END | disposition home or self-care (01) | LOC: LABSPEC 10:07 | PROVIDERS: Referring Provider Physician Assistant Surgical; Visit Provider Physician Assistant Surgical | DX: N30.90 Cystitis, unspecified without hematuria (principal) | CPT/HCPCS: 87086 ==

== ENCOUNTER → 2023-02-08 | Outpatient (CLI) | payer OTHER, SELFPAY ==
[2023-02-08 09:30] LABS: T4 Free Direct 1.76 ng/dL (0.76-1.46); Thyroid Stim Hormone (TSH) < 0.01 uIU/mL (0.358-3.74)
== END | disposition home or self-care (01) ==
LOC: LAB 06:51
PROVIDERS: PCP Family Medicine; Referring Provider Family Medicine; Visit Provider Family Medicine
DX: E03.9 Hypothyroidism, unspecified (principal); E79.0 Hyperuricemia without signs of inflammatory arthritis and tophaceous disease
CPT/HCPCS: 36415; 84439; 84443; 84481; 84550

== ENCOUNTER → 2023-04-24 | Outpatient (CLI) | payer OTHER, SELFPAY ==
--- NOTE | 2023-04-24 14:12 | BI_ITS ---
MAMMOGRAPHY - BILATERAL SCREENING REASON FOR EXAM: Female, 53 years old. Routine annual screening examination. PERTINENT HISTORY: Non-contributory. History of prior bilateral breast reduction surgery. TECHNIQUE: Digital bilateral breast mamie (3D mammographic acquisition) in the CC and MLO projections. 2-D mediolateral oblique (MLO) and craniocaudad (CC) views of both breasts were obtained. CAD: Full Field Digital Mammography with Computer Added Detection was performed. COMPARISON: Comparison is made with prior study dated April 11, 2022 and April 05, 2021. FINDINGS: Breast Composition: The breasts are heterogeneously dense, which may obscure small masses. There are no dominant masses or suspicious calcifications. No other significant abnormalities are identified. There has been no significant change since the prior study. BI/SCRN MAMM (CAD)W/MAMIE BILAT IMPRESSION: Stable bilateral screening mammogram. Yearly follow-up mammogram recommended. (A) ASSESSMENT CATEGORY: BIRADS Category 1: Negative. A letter regarding these results will be sent to the patient by the facility within 30 days. Approximately 10% of breast cancers are not detected by mammography. A normal mammogram should not delay biopsy of a clinically suspicious abnormality. [id number] Electronically Signed: Stephane Dinh MD at 15:08 EDT ,
== END | disposition home or self-care (01) ==
LOC: OPBI 14:10
PROVIDERS: PCP Family Medicine; Referring Provider Obstetrics & Gynecology; Visit Provider Obstetrics & Gynecology
DX: Z12.31 Encounter for screening mammogram for malignant neoplasm of breast (principal)
CPT/HCPCS: 77063; 77067

== ENCOUNTER → 2023-05-17 | Outpatient (CLI) | payer OTHER, SELFPAY ==
[2023-05-17 08:08] LABS: Free T3 2.8 pg/mL (2.18-3.98); T4 Free Direct 1.18 ng/dL (0.76-1.46); Thyroid Stim Hormone (TSH) 0.78 uIU/mL (0.358-3.74)
== END | disposition home or self-care (01) ==
LOC: LAB 07:00
PROVIDERS: PCP Family Medicine; Referring Provider Family Medicine; Visit Provider Family Medicine
DX: E03.9 Hypothyroidism, unspecified (principal)
CPT/HCPCS: 36415; 84439; 84443; 84481

== ENCOUNTER 2023-06-14 14:14 | Emergency (ER) | payer OTHER, SELFPAY ==
[2023-06-14 14:15] VITALS: BP 153/88; PULSE 80; RESP 18; TEMP 36.4; O2SAT 100; BMI 27.9
--- NOTE | 2023-06-14 14:37 | CT_ITS ---
STUDY: CT ABDOMEN AND PELVIS WITH CONTRAST REASON FOR EXAM: Female, 53 years old. RLQ pain RADIATION DOSAGE (If Supplied By Facility): CTDIvol = ( 13.00 ) mGy, DLP = ( 826.60 ) mGycm TECHNIQUE: Transaxial images were obtained from the dome of the diaphragm to the symphysis pubis without oral contrast. IV 100mL Isovue-300 was administered. Sagittal and coronal images were reconstructed. Individualized dose optimization techniques were used for this CT. COMPARISON: None. FINDINGS: The visualized lung bases are unremarkable. The visualized portions of the heart are within normal limits. Normal liver. Normal gallbladder and extrahepatic biliary system. Normal spleen. Normal pancreas. Normal bilateral adrenal glands. Normal right kidney. Normal left kidney. Evaluation of the GI tract is limited by absence of oral contrast. There has been gastric sleeve surgery. Cannot exclude stomach wall thickening. No dilated loops of bowel or evidence for obstruction. Cannot exclude segmental thickening of the montejo of the small or large bowel. Cannot exclude enteritis or colitis. Marked diffuse fecal retention. Appendix within normal limits. Normal abdominal aorta. Normal inferior vena cava. Normal retroperitoneum. Normal urinary bladder. There is absence of the uterus consistent with a prior hysterectomy. Normal abdominal wall. There are diffuse degenerative changes of the visualized lumbar spine. Post surgical changes seen with posterior fusion between L3-S1. Epidural stimulator seen T9 and T10. CT/Abdomen/Pelvis W IV Cont ONLY IMPRESSION: Marked diffuse fecal retention. No other definite acute or significant abnormality seen. Electronically Signed: Phuc Garza MD at 16:56 EDT ,
[2023-06-14 14:55] LABS: Bacteria 0 SEEN /hpf (None Seen); Mucous, Urine 0 SEEN /hpf (<or=2+); Red Blood Cells-Urine 0 SEEN /hpf (0-5)
[2023-06-14 14:57] LABS: Absolute Lymphocyte Count 2.71 X10^3/uL (0.83-4.51); Absolute Neutrophil Count 6.6 X10^3/uL (2.0-7.7); Basophil# 0.12 X10^3/uL; Basophil% 1.1 % (0-1); Color, Urine Yellow (Yellow); Eosinophil# 0.62 X10^3/uL; Eosinophils% 5.6 % (0-5); Glucose, Dipstick Normal (Normal); Hematocrit 40.4 % (37-47); Hemoglobin 12.8 g/dL (12.0-15.0); Ketone-Dipstick Negative (Negative); Leukocyte Esterase-Dipstick 25 /ul (Negative); Lymphocyte # 2.71 X10^3/ul (0.83-4.51); Lymphocyte % 24.5 % (19-41); Mean Corp Hgb Conc 31.7 g/dL (32-36); Mean Corpuscular Volume 88.4 fL (81-99); Mean Platelet Vol. 9.2 fl (6.2-12.0); Monocyte# 0.98 X10^3/uL; Monocyte% 8.9 % (0-10); NRBC Flagged by Analyzer 0 % (0-5); Neutrophil # 6.57 X10^3/uL (2.7-7.7); Neutrophil % 59.5 % (47-70); Nitrite-Dipstick Negative (Negative); Occult Blood-Urine Negative /ul (Negative); Platelet Count 334 K/mm3 (150-450); Protein-Dipstick Negative (Negative); RBC Distribution Width CV 15.1 % (11.6-14.6); RBC Distribution Width SD 48.9 fl (35.1-43.9); Red Blood Count 4.57 M/mm3 (4.2-5.4); Specific Gravity, Urine 1.005 (1.002-1.030); Urine Bilirubin Dipstick Negative (Negative); Urine Clarity Clear (Clear); Urine Urobilinogen Normal (Normal)
[2023-06-14 15:13] LABS: AST(SGOT) 16 U/L (15-37); Alanine Aminotransfer ALT/SGPT 19 U/L (13-56); Albumin, Serum 3.8 g/dL (3.2-5.0); Alkaline Phosphatase 92 U/L (45-117); Anion Gap 4 (5-15); BUN 12 mg/dL (7-18); BUN/Creat Ratio 12.4 RATIO (10-20); Calcium,Total 9.4 mg/dL (8.5-10.1); Chloride 104 mmol/L (98-107); Creatinine, Serum 0.97 mg/dL (0.55-1.02); EST Glomerular Filtration Rate 64 mL/min (>60); Est Glom Filt Rate - Afr Amer 77 mL/min (>60); Estimated Creatinine Clearance 62.63 ml/min; Globulin 3.8 g/dL (2.2-4.2); Glucose 83 mg/dL (74-106); Potassium 3.7 mmol/L (3.5-5.1); Protein, Total 7.6 g/dL (6.4-8.2); Sodium Level 137 mmol/L (136-145)
[2023-06-14] MEDS: 0.9% Normal Saline (1000mL) 1,000 ML 999 ML IV (15:41)
[2023-06-14 16:14] LABS: Squamous Epithelial Cells - UA 0-5 SEEN /hpf (5-10); White Blood Cells 0-5 SEEN /hpf (0-5)
[2023-06-14 16:15] VITALS: BP 166/95; PULSE 79; RESP 17; O2SAT 99
--- NOTE | 2023-06-14 16:29 | EDS_ITS ---
HPI HPI - GI History of Present Illness Chief Complaint: Abd Pain Narrative Narrative: 53-year-old female presenting with right lower quadrant pain. She states it started this morning about 6 AM when she got to work. Progressively has been worse throughout the day. She has a history of kidney stones but states it does not feel the same. She describes it as achy. She has worsening pain when she ambulates. She has not a fever and does not feel ill. She has had some constipation and no diarrhea. She is not on any blood thinners. History of ex lap secondary to fever and pelvic pain, she however she states that there was no significant findings. [facility] Medical History Alcohol use Arthritis DDD (degenerative disc disease), lumbar Depression Dietary restriction Easy bruising History of echocardiogram History of gastrectomy History of kidney stones History of stress test Non-smoker Rash Right lateral epicondylitis Shortness of breath on exertion Thyroid disease Urinary frequency Wears glasses Home Medications cholecalciferol (vitamin D3) 25 mcg (1,000 unit) tablet (Vitamin D3) 2,000 unit PO DAILY 09/01/14 [History Last Taken Unknown] levothyroxine 112 mcg tablet 200 mcg PO DAILY 09/01/14 [History Last Taken 09/30/22] milnacipran 50 mg tablet (Savella) 50 mg PO BREAKFAST FIBROMYALGIA PAIN 09/01/14 [History Last Taken Unknown] valsartan 40 mg tablet (Diovan) 320 mg PO DAILY 09/01/14 [History Last Taken 09/30/22] aspirin 81 mg chewable tablet 81 mg PO QHS 11/23/15 [History Last Taken 09/19/22] fexofenadine-pseudoephedrine ER 180 mg-240 mg tablet,ext.release 24 hr (Sallie- D 24 Hour) 1 ea PO DAILY 11/23/15 [History Last Taken Unknown] bupropion HCl 150 mg 24 hr tablet, extended release 150 mg PO DAILY 12/16/15 [History Last Taken Unknown] milnacipran 50 mg tablet (Savella) 50 mg PO QHS FIBROMYALGIA PAIN 12/23/15 [History Last Taken Unknown] calcium citrate 1,200 mg PO DAILY 11/20/18 [History Last Taken Unknown] cyanocobalamin (vitamin B-12) 2,500 mcg chewable tablet 2,500 mcg sublingual DAILY 11/20/18 [History Last Taken Unknown] gabapentin 100 mg capsule 100 mg PO DAILY PRN nerve pain 11/20/18 [History Last Taken 11/23/18] multivitamin with minerals 2 ea PO DAILY 11/20/18 [History Last Taken Unknown] tramadol 50 mg tablet 50 mg PO Q4H PRN PRN Pain Or Fever 11/20/18 [History Last Taken Unknown] biotin 1 mg capsule 1 mg PO DAILY 04/05/21 [History Last Taken Unknown] fluconazole 150 mg tablet 150 mg PO Q3D 2 doses #2 tabs 02/03/23 [Rx Last Taken Unknown] ondansetron 4 mg disintegrating tablet 4 mg PO Q8H PRN PRN Nausea #10 tabs 06/14/23 [Rx Last Taken Unknown] Allergy/AdvReac Type Severity Reaction Status Date / Time crab Allergy Itching Verified 06/14/23 14:15 gluten Allergy headache Verified 06/14/23 14:15 sulfamethoxazole AdvReac Vomiting Verified 06/14/23 14:15 [From Bactrim] trimethoprim [From Bactrim] AdvReac Vomiting Verified 06/14/23 14:15 Family History Mother Hypertension Heart disease Diabetes Thyroid disorder Father Hypertension Brother Hypertension Grandfather Thyroid disorder Grandmother CVA (cerebral vascular accident) Surgical History History of back surgery History of bilateral breast reduction surgery History of colonoscopy History of hysterectomy History of pubovaginal sling Social History Smoking Status: Never smoker ROS ROS ED Constitutional Constitutional ED: Denies chills or fever(s) Eyes Eyes: Denies blurry vision or change in vision ENT ENT ED: Denies rhinorrhea or sore throat Cardiovascular Cardiovascular: Denies chest pain or palpitations Respiratory/Chest Respiratory/Chest: Denies cough, dyspnea or sputum Gastrointestinal Gastrointestinal: Denies abdominal pain, constipation, diarrhea, nausea or vomit ing Genitourinary Genitourinary ED: Denies dysuria, hematuria or urinary frequency Musculoskeletal Musculoskeletal: Denies arthralgias, myalgias or neck pain Integumentary Denies abscess, Abrasions or rash Neurologic Neurologic: Denies headache(s), paresthesias or weakness Psychiatric Psychiatric: Denies anxiety, depression, suicidal ideation or suicidal thoughts Endocrine Endocrinology: Denies polydipsia or polyuria EXAM Physical Exam Const Vital Signs: 06/14/23 14:15 06/14/23 16:15 06/14/23 18:00 Temperature 97.6 F L Temperature Source Temporal Pulse Rate 80 79 84 Respiratory Rate 18 17 18 Blood Pressure 153/88 H 166/95 H 158/70 H Blood Pressure Mean 109 118 99 Pulse Ox 100 99 100 Oxygen Delivery Method Room Air Room Air Room Air Positive well nourished General Appearance ED: NAD; Negative for pallor HEENT Reports moist mucous membranes Eyes PERRL and EOMs intact bilaterally Resp normal respiratory effort Cardio regular rate and regular rhythm GI Palpation: tender RLQ, periumbilical and Obturator sign Neuro CN's II-XII intact bilaterally Sensorium / Orientation: alert Motor Exam: strength 5/5 throughout Psych mental status grossly normal Skin General Skin Exam: Negative for jaundice or pallor MDM MDM MDM Narrative Medical decision making narrative: 53-year-old female presenting with right lower quadrant pain that started earlier this morning. Patient presenting with right flank pain. Differential includes colitis, diverticulitis, constipation, appendicitis, UTI, pyelonephritis, calculi, ureteral calculi, obstruction, malignancy, dehydration, electrolyte abnormalities, ovarian torsion, ovarian cyst, ectopic . Patient declines analgesia. CBC obtained to assess white blood cell count, he moglobin, platelets. CMP to assess liver function, renal function, electrolytes, glucose. Urinalysis to assess for UTI and occult blood. CBC shows normal white blood cell count 11.0. Hemoglobin 12.8. Platelets are 334. Renal function electrolytes all within normal limits. Urinalysis negative for infection and occult blood. CT of the abdomen pelvis was negative for acute findings other than fecal retention. I reviewed the CT with Dr. Frankel who agreed. Recommended MiraLAX for home. Return precautions discussed. Impression: 1. Abdominal pain 2. Constipation Lab Data Attestation: I reviewed the patient's lab results. Labs: Laboratory Results - last 24 hr 06/14/23 14:50 WBC 11.0 RBC 4.57 Hgb 12.8 Hct 40.4 MCV 88.4 MCH 28.0 MCHC 31.7 L RDW Std Deviation 48.9 H RDW Coeff of [place] 15.1 H Plt Count 334 MPV 9.2 Immature Gran % (Auto) 0.400 Neut % (Auto) 59.5 Lymph % (Auto) 24.5 Banks % (Auto) 8.9 Eos % (Auto) 5.6 H Baso % (Auto) 1.1 H Absolute Neuts (auto) 6.6 Absolute Lymphs (auto) 2.71 Nucleated RBC % 0 Sodium 137 Potassium 3.7 Chloride 104 Carbon Dioxide 29.0 Anion Gap 4 L BUN 12 Creatinine 0.97 Estim Creat Clear Calc 62.63 Est GFR (MDRD) Af Amer 77 Est GFR (MDRD) Non-Af 64 BUN/Creatinine Ratio 12.4 Glucose 83 Calcium 9.4 Total Bilirubin 0.30 AST 16 ALT 19 Alkaline Phosphatase 92 Total Protein 7.6 Albumin 3.8 Globulin 3.8 Albumin/Globulin Ratio 1.0 Serum , Qual Cancelled Urine Color Yellow Urine Clarity Clear Urine pH 7.0 Ur Specific [place] 1.005 Urine Protein Negative Urine Glucose (UA) Normal Urine Ketones Negative Urine Occult Blood Negative Urine Nitrite Negative Urine Bilirubin Negative Urine Urobilinogen Normal Ur Leukocyte Esterase 25 H Urine RBC 0 SEEN Urine WBC 0-5 SEEN Ur Squamous Epith Cells 0-5 SEEN Urine Bacteria 0 SEEN Urine Mucus 0 SEEN Radiography Diagnostic Testing: Clinical Impression(s) from Imaging Studies Abdomen/Pelvis CT 06/14/23 14:37 IMPRESSION: Marked diffuse fecal retention. No other definite acute or significant abnormality seen. Electronically Signed: Phuc Garza MD at 16:56 EDT Reading Location ID and State: [address] [place] [address] , Service support , Discharge Plan Triage Chief Complaint: Abd Pain ED Provider: Gus Tracy Dx/Rx/DC Orders Instructions: ED Abdominal Pain Unkn Cause Fem, ED Constipation (Adult) Prescriptions: New ondansetron 4 mg tablet,disintegrating 4 mg PO Q8H PRN PRN (Reason: Nausea) Qty: 10 0RF No Action biotin 1 mg capsule 1 mg PO DAILY fluconazole 150 mg tablet 150 mg PO Q3D Qty: 2 0RF Rx Instructions: may repeat second dose 72 hrs after first dose if symptoms persist levothyroxine 112 MCG tablet 200 mcg PO DAILY valsartan [Diovan] 40 MG tablet 320 mg PO DAILY cholecalciferol (vitamin D3) [Vitamin D3] 1,000 UNIT tablet 2,000 unit PO DAILY Savella 50 MG tablet 50 mg PO BREAKFAST Patient Comments: 100 MG IN MORNING, 50 MG AT NIGHT aspirin 81 MG tablet,chewable 81 mg PO QHS fexofenadine-pseudoephedrine [Sallie-D 24 Hour] 1 EACH tablet extended release 24 hr 1 ea PO DAILY Savella 50 MG tablet 50 mg PO QHS Patient Comments: 100 MG IN AM, 50 MG AT HS bupropion HCl 150 MG tablet extended release 24 hr 150 mg PO DAILY tramadol 50 MG tablet 50 mg PO Q4H PRN PRN (Reason: Pain Or Fever) gabapentin 100 MG capsule 100 mg PO DAILY PRN (Reason: nerve pain) Rx Instructions: 1OO MG IN A.M.; 300 MG QHS; 100MG PRN multivitamin with minerals 1 EACH tablet 2 ea PO DAILY calcium citrate 250 MG tablet 1,200 mg PO DAILY cyanocobalamin (vitamin B-12) 2,500 MCG tablet,chewable 2,500 mcg sublingual DAILY Primary Care Provider: Samra Obrien Referrals: Samra Obrien DO [Primary Care Provider] - Disposition Disposition: Home, Self Care Discharge Date/Time: 06/14/23 18:44
[2023-06-14] MEDS: Ketorolac 15 MG/ML Vial IV (17:58)
[2023-06-14 18:00] VITALS: BP 158/70; PULSE 84; RESP 18; O2SAT 100
== END 2023-06-14 18:44 | disposition home or self-care (01) ==
PROVIDERS: Emergency Provider Student in an Organized Health Care Education/Training Program; PCP Family Medicine; Visit Provider Student in an Organized Health Care Education/Training Program
DX: R10.9 Unspecified abdominal pain (principal); K59.00 Constipation, unspecified; Z87.442 Personal history of urinary calculi; Z90.710 Acquired absence of both cervix and uterus
CPT/HCPCS: 74177; 80053; 81001; 84703; 85025; 96361; 96374; 99282; J7030; Q9967; A4216

== ENCOUNTER → 2023-07-31 | Outpatient (CLI) | payer OTHER, SELFPAY | END | disposition home or self-care (01) | PROVIDERS: PCP Family Medicine; Visit Provider Family Medicine Geriatric Medicine | DX: Z03.818 Encounter for observation for suspected exposure to other biological agents ruled out (principal) | CPT/HCPCS: 87811 ==

== ENCOUNTER 2023-09-29 07:54 | Day surgery (SDC) | payer OTHER, SELFPAY ==
[2023-09-29] VITALS (10 sets, daily range): BP systolic 130–154; BP diastolic 68–86; PULSE 83–97; RESP 16–20; TEMP 36.1–36.6; O2SAT 94–100; BMI 28.4
[2023-09-29] MEDS: Lactated Ringers 1,000 ML 15 ML IV (08:23)
--- NOTE | 2023-09-29 08:47 | PRE.ANES_ITS ---
ASA Classification* ASA Classification ASA Classification: 2 Assessment & Plan Anesthesia* Anesthesia Assessment Anesthesia Assessment: Discussed sedation and/or anesthesia options, risks, benefits, and alternatives with patient/parents/legal guardian/POA. Questions invited. The patient/parents/legal guardian/POA seems to understand and agrees to proceed with anesthesia plan. Reviewed the physical assessment, medical history, allergy history and patient home medications list prior to surgery/procedure/anesthetic and documented any changes. Performed airway and anesthesia risk assessments. Anesthesia Type Anesthesia Type: General Anesthesia Focused Assessment* Temperature: 97.6 F Pulse Rate: 83 Blood Pressure: 130/75 Respiratory Rate: 16 Pulse Ox: 100 Airway Assessment Mouth opens: >3 cm Mallampati Score: II Focused Labs Anesthesia Preop lab: CBC WBC 11.0 K/mm3 (4.4-11.0) 06/14/23 14:50 RBC 4.57 M/mm3 (4.2-5.4) 06/14/23 14:50 Hgb 12.8 g/dL (12.0-15.0) 06/14/23 14:50 Hct 40.4 % (37-47) 06/14/23 14:50 Plt Count 334 K/mm3 (150-450) 06/14/23 14:50 CHEMISTRY Potassium 3.7 mmol/L (3.5-5.1) 06/14/23 14:50 Sodium 137 mmol/L (136-145) 06/14/23 14:50 Phosphorus 3.8 mg/dL (2.5-4.9) 11/29/22 06:10 BUN 12 mg/dL (7-18) 06/14/23 14:50 Creatinine 0.97 mg/dL (0.55-1.02) 06/14/23 14:50 Glucose 83 mg/dL (74-106) 06/14/23 14:50 POC Glucose 119 mg/dL (70-110) H 12/23/15 11:58 TSH 0.78 uIU/mL (0.358-3.74) 05/17/23 07:07 COAG Pre-Assessment Diagnosis/Proposed Procedure Planned Operative Procedure(s): (B) Bilateral upper blepharoplasty Anesthesia History 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 When Was Last Pacemaker Check QUESTION #4 FULL TEXT: You/Your Family Experience fever (hyperthermia) with Anesthesia Last Oral Intake Last Oral intake: Last Oral Intake NPO since 07:15 09/29/23 08:14 Meds taken in AM with sips of Yes 09/29/23 08:14 water? 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 Female Yes 09/19/23 13:58 HX of Motion Sickness No 09/19/23 13:58 HX of N/V After Surgery No 09/19/23 13:58 Non-Smoker Yes 09/19/23 13:58 Duration of Surgery greater Yes 09/19/23 13:58 than 60 minutes Number of Risk Factors 3 09/19/23 13:58 PONV Score Moderate Risk 09/19/23 13:58 Height & Weight Height & Weight: Anesthesia: Height & Weight Height 5 ft 3.5 in 09/29/23 08:14 Weight: 73.9 kg 09/29/23 08:14 Body Mass Index (BMI) 28.4 09/29/23 08:14 Respiratory Assessment Respiratory Assessment - fabric coating supervisor: Respiratory Tract Infection Hx - fabric coating supervisor Hx Respiratory Tract Infection No 09/19/23 13:58 STOP Sleep Apnea STOP Sleep Apnea - fabric coating supervisor: STOP Sleep Apnea - fabric coating supervisor Hx Hypertension Yes: PER PT, CONTROLLED ON 09/19/23 13:58 MEDS Hx Sleep Apnea Yes 09/19/23 13:58 CPAP No 09/19/23 13:58 BIPAP Yes 09/19/23 13:58 Do you snore loudly (louder than talking or can be heard Do you often feel tired/ fatigued/ sleepy during daytime? Has anyone observed you stop breathing during sleep? STOP Results Positive 09/19/23 13:58 QUESTION #5 FULL TEXT : Do you snore loudly (louder than talking or can be heard through closed doors)? 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 Specify any problems Hx of Preganancy in last 3 No 09/19/23 13:58 Months Nurse Filling Out Transfusion VCHRISTIN 09/19/23 13:58 & Questions: Date: 09/19/23 09/19/23 13:58 Time: 14:00 09/19/23 13:58 Patient unable to answer at this time (ie. confused, unrespo /Reproduction History /Reproductive History - fabric coating supervisor: /Reproductive Hx- fabric coating supervisor Hx Now No 09/19/23 13:58 Gestational Age (in weeks): EDC: Hx Hx Para Hx Section SAB No 09/19/23 13:58 Active Medications Active Medications: Current Medications Generic Name Dose Route Start Last Admin Trade Name Freq PRN Reason Stop Dose Admin Cefazolin Sodium 2 gm/ Sodium 110 mls @ 150 mls/hr 09/29/23 09:20 Chloride IV 09/29/23 10:03 PREOP ONE Lactated Ringer's 1,000 mls @ 15 mls/hr 09/29/23 08:15 09/29/23 08:23 IV 15 mls/hr .Q48H DWIGHT Administration PFSH Medical History History of thyroid disease History of gastroesophageal reflux (GERD) History of allergic urticaria History of hypertension History of migraine headaches History of migraine History of depression History of anxiety History of UTI History of bladder infections History of arthritis History of seasonal allergies Wears glasses Depression Alcohol use Rash Arthritis Thyroid disease Urinary frequency History of kidney stones Easy bruising Dietary restriction Non-smoker Shortness of breath on exertion History of echocardiogram History of stress test History of gastrectomy Right lateral epicondylitis DDD (degenerative disc disease), lumbar Home Medications ?Medication ?Instructions ?Recorded ?Last Taken ?Type cholecalciferol (vitamin D3) 25 2,000 unit PO DAILY 09/01/14 Unknown History mcg (1,000 unit) tablet (Vitamin D3) milnacipran 50 mg tablet (Savella) 50 mg PO BREAKFAST FIBROMYALGIA 09/01/14 09/29/23 History PAIN valsartan 40 mg tablet (Diovan) 320 mg PO DAILY 09/01/14 09/29/23 History aspirin 81 mg chewable tablet 81 mg PO QHS 11/23/15 09/14/23 History fexofenadine-pseudoephedrine ER 1 ea PO DAILY 11/23/15 Unknown History 180 mg-240 mg tablet,ext.release 24 hr (Sallie-D 24 Hour) bupropion HCl 150 mg 24 hr tablet, 150 mg PO DAILY 12/16/15 09/28/23 History extended release milnacipran 50 mg tablet (Savella) 50 mg PO QHS FIBROMYALGIA PAIN 12/23/15 Unknown History calcium citrate 1,200 mg PO DAILY 11/20/18 Unknown History cyanocobalamin (vitamin B-12) 2,500 mcg sublingual DAILY 11/20/18 Unknown History 2,500 mcg chewable tablet gabapentin 100 mg capsule 100 mg PO DAILY PRN nerve pain 11/20/18 09/29/23 History multivitamin with minerals 2 ea PO DAILY 11/20/18 09/14/23 History tramadol 50 mg tablet 50 mg PO Q4H PRN PRN Pain Or Fever 11/20/18 Unknown History biotin 1 mg capsule 1 mg PO DAILY 04/05/21 Unknown History levothyroxine 112 mcg tablet 150 mcg PO DAILY 08/09/23 09/29/23 History methocarbamol 750 mg tablet 750 mg PO QHS PRN pain 08/09/23 Unknown History erythromycin 5 mg/gram (0.5 %) eye 1 applic ophthalmic (eye) DAILY 09/13/23 Unknown Rx ointment #3.5 grams cephalexin 500 mg capsule 500 mg PO BID 09/19/23 09/28/23 History Allergy/AdvReac Type Severity Reaction Status Date / Time gluten Allergy headache Verified 09/29/23 08:09 sulfamethoxazole (From AdvReac Vomiting Verified 09/29/23 08:09 Bactrim) trimethoprim (From Bactrim) AdvReac Vomiting Verified 09/29/23 08:09 Family History Mother Hypertension Heart disease Diabetes Thyroid disorder High cholesterol Depression Father Hypertension Alcoholism Arthritis Cancer sinus Brother Hypertension Heart disease Grandfather Thyroid disorder Cancer stomach Grandmother CVA (cerebral vascular accident) Cancer stomach Colon cancer Surgical History Hx of surgical procedure History of bariatric surgery History of bilateral breast reduction surgery History of hysterectomy History of pubovaginal sling History of back surgery History of colonoscopy Social History Smoking Status: Never smoker alcohol intake: current details: 2 x week additional social history: pt denies vaping, denies marijuana use, denies edibles, uses aspirin daily, uses ibuprofen weekly Review of Systems (Anesthesia) ROS Narrative System reviewed and no additional complaints, except as documented.
--- NOTE | 2023-09-29 09:32 | PCM.HP.BLA ---
History and Physical Date of Admission: 09/29/23 The patient is examined and there are no changes from the H&P dated 09/08/2023. She presents for bilateral upper blepharoplasty. The procedure been thoroughly reviewed with the patient. Informed consent was obtained. She is marked in the preop holding area prior to surgery. Assessment & Plan Assessment/Plan (1) Limited peripheral vision of both eyes: (2) Dermatochalasis of both eyelids: QUALIFIERS: Eyelid: upper Qualified Code(s): H02.831 - Dermatochalasis of right upper eyelid; H02.834 - Dermatochalasis of left upper eyelid PLAN: Plan Patient for bilateral upper blepharoplasty for vision improvement.
[2023-09-29] MEDS: Cefazolin 2 GM in 0.9% Normal Saline (100mL Bag) 100 ML IV (10:15)
[2023-09-29] MEDS: EPINEPHrine Nasal 0.1% 30 ML Bottle OPERA.SITE (10:30)
[2023-09-29] MEDS: Lidocaine 1% /Epi 1:100 (20ml) 20 ML Vial (10:30)
[2023-09-29] MEDS: Povidone Iodine 30 ML Opthalmic Sol 1 DRP (10:30)
[2023-09-29] MEDS: Erythromycin Base 1 OPTH.TUBE 1 APPLIC (10:30)
[2023-09-29] MEDS: Tetracaine 0.5% Ophthalmic Bottle 1 DRP (10:30)
--- NOTE | 2023-09-29 11:33 | DCINST_ITS ---
Discharge Instructions Dressing / Incision Additional Dressing/Incision Instructions:: Keep your back elevated (recliner position) as directed by the instructions. Follow the instructions given in the office. Maintain cool compresses today on your eyes bilaterally. Follow Up Care Please Follow Up With: Janessa Singleton MD Test Results: Test results from this visit will be discussed in further detail at your follow- up appointment, if applicable. Discharge Plan Admission Attending Provider: Janessa Singleton Primary Care Provider: Samra Obrien Instructions Print Language: Icelandic Discharge Orders/Prescriptions Prescriptions: No Action biotin 1 mg capsule 1 mg PO DAILY methocarbamol 750 mg tablet 750 mg PO QHS PRN (Reason: pain) erythromycin 5 mg/gram (0.5 %) ointment 1 applic ophthalmic (eye) DAILY Qty: 3.5 0RF Rx Instructions: Apply to incision 1 x a day and in the eye at nighttime. valsartan [Diovan] 40 MG tablet 320 mg PO DAILY cholecalciferol (vitamin D3) [Vitamin D3] 1,000 UNIT tablet 2,000 unit PO DAILY Savella 50 MG tablet 50 mg PO BREAKFAST Patient Comments: 50 MG IN MORNING, 50 MG AT NIGHT levothyroxine 112 mcg tablet 150 mcg PO DAILY aspirin 81 MG tablet,chewable 81 mg PO QHS fexofenadine-pseudoephedrine [Sallie-D 24 Hour] 1 EACH tablet extended release 24 hr 1 ea PO DAILY Savella 50 MG tablet 50 mg PO QHS Patient Comments: 100 MG IN AM, 50 MG AT HS bupropion HCl 150 MG tablet extended release 24 hr 150 mg PO DAILY tramadol 50 MG tablet 50 mg PO Q4H PRN PRN (Reason: Pain Or Fever) gabapentin 100 MG capsule 100 mg PO DAILY PRN (Reason: nerve pain) Rx Instructions: 1OO MG IN A.M.; 100 MG QHS; 100MG PRN multivitamin with minerals 1 EACH tablet 2 ea PO DAILY calcium citrate 250 MG tablet 1,200 mg PO DAILY cyanocobalamin (vitamin B-12) 2,500 MCG tablet,chewable 2,500 mcg sublingual DAILY cephalexin 500 mg capsule 500 mg PO BID Rx Instructions: FOR 7 DAYS, START 09/28/2023 Referrals / Follow Up: Samra Obrien DO [Primary Care Provider] - Disposition Disposition (needs filled in before D/C Order can be placed): Home, Self Care
--- NOTE | 2023-09-29 11:34 | PCM.OPRPT ---
Problems Associated Problem List Diagnoses (1) Limited peripheral vision of both eyes: (2) Dermatochalasis of both eyelids: Report of Operation Date of Procedure: 09/29/23 Pre-Operative Diagnosis: Bilateral upper eyelid dermatochalasis obstructing visual alcantar Post-Operative Diagnosis: Same Surgery/Procedure Performed:: Bilateral upper blepharoplasty Surgeon: Janessa Singleton surgical scrub technician: BRITTNEE NANCEunemployment claims adjudicator Type of Anesthesia: General Estimated Blood Loss (mL): Minimal Description of Procedure: The patient presents today for upper blepharoplasty to correct visual field defects. The procedure been thoroughly reviewed with the patient including the expected pre-, intra, and postoperative course. An informed consent was obtained. She is marked in the preop holding area prior to surgery. The patient was brought to the operating room and placed under general anesthesia in the supine position. Care is taken to pad all pressure points, apply sequential compression stockings, and a warming blanket. The face is prepped and draped in usual sterile fashion. Tetracaine drops were placed in the eyes. Corneal rock lubricated with antibiotic ophthalmic ointment is placed bilaterally. We initially began with incising the incisions. The skin is removed within the demarcated area and a subdermal plane. Hemostasis is controlled with bipolar cautery. A strip of orbicularis oculi is then removed and again meticulous hemostasis is ensured. The incision is then tacked together with fast-absorbing gut suture and we directed our attention to the opposite side where the identical procedure was performed. Cool compresses are maintained on the eyes bilaterally at each step of the procedure. Following this, all incisions are closed with a running subcuticular Prolene suture. The sutures anchored at the temples and glabella with Steri-Strips and Mastisol. The corneal rock are removed. Cool compresses are placed anchored with a stockinette. She tolerated the procedure well was taken to the recovery area in an awakening in stable condition. Needle and sponge counts are correct. Complications None Admit VTE Documentation VTE Mechan Device Prophylaxis: SCD's
--- NOTE | 2023-09-29 11:47 | PCM.POST.ANE ---
Anesthesia: Postop Eval I Current Vital Signs Temperature: 97.7 F Pulse Rate: 97 Blood Pressure: 141/68 Respiratory Rate: 20 Pulse Ox: 96 Oxygen Delivery Method: Room Air Assessment Airway patent: Yes Spontaneous unlabored respirations: Yes Mental status: Asleep nausea: No Vomiting: No Anesthesia Complication: No Fluid Hydration Crystalloid volume administer (ml): 1,500 Total IV fluid infused: 1,500 Progress Note Anesthesia document: Postop Eval 1 completed: Yes
--- NOTE | 2023-09-29 12:48 | SUR.PHASEII ---
eye gauze dressing changed [id number]
--- NOTE | 2023-09-29 12:49 | POSTOPAN2_ITS ---
Anesthesia Postop Eval I Sum Postop Eval Completion status Anesthesia document: Postop Eval 1 completed: Yes Anesthesia Postop Eval I Summary Anesthesia Postop Eval I Summary: Anesthesia Postop Eval I: Assessment Summary Airway patent Yes 09/29/23 11:48 GATE MORTISER [email or web address] Spontaneous unlabored Yes 09/29/23 11:48 GATE MORTISER OPERATOR.[email or web address] respirations Mental status Asleep 09/29/23 11:48 GATE MORTISER OPERATOR.[email or web address] nausea No 09/29/23 11:48 GATE MORTISER OPERATOR.[email or web address] Vomiting No 09/29/23 11:48 GATE MORTISER OPERATOR.[email or web address] Anesthesia Postop Eval I: Fluid Summary Crystalloid volume administer 1,500 09/29/23 11:48 GATE MORTISER OPERATOR.JDEF (ml) Colloids volume administered ( ml) Blood Product volume administered (ml) Total IV fluid infused 1,500 09/29/23 11:48 GATE MORTISER OPERATOR.JDEF Anesthesia Postop Eval I: Summary Notes Anesthesia Complication No 09/29/23 11:48 GATE MORTISER OPERATOR.JDEF Anesthesia Complication Comment: Post-operative progress note Anesthesia: Postop Eval II Evaluation Mental status: Awake Pain Level: 0 nausea: No Vomiting: No
--- NOTE | 2023-09-29 12:49 | PCM.POSTANE2 ---
Anesthesia Postop Eval I Sum Postop Eval Completion status Anesthesia document: Postop Eval 1 completed: Yes Anesthesia Postop Eval I Summary Anesthesia Postop Eval I Summary: Anesthesia Postop Eval I: Assessment Summary Airway patent Yes 09/29/23 11:48 [email or web address] Spontaneous unlabored Yes 09/29/23 11:48 [email or web address] [email or web address] respirations Mental status Asleep 09/29/23 11:48 [email or web address] nausea No 09/29/23 11:48 [email or web address] [email or web address] Vomiting No 09/29/23 11:48 [email or web address] [email or web address] Anesthesia Postop Eval I: Fluid Summary Crystalloid volume administer 1,500 09/29/23 11:48 [email or web address] (ml) Colloids volume administered ( ml) Blood Product volume administered (ml) Total IV fluid infused 1,500 09/29/23 11:48 GAS ADJUSTER.[email or web address] Anesthesia Postop Eval I: Summary Notes Anesthesia Complication No 09/29/23 11:48 GAS [email or web address].[email or web address] Anesthesia Complication Comment: Post-operative progress note Anesthesia: Postop Eval II Evaluation Mental status: Awake Pain Level: 0 nausea: No Vomiting: No
== END 2023-09-29 13:18 | disposition home or self-care (01) ==
LOC: SDC 07:54 → AC 07:57
PROVIDERS: PCP Family Medicine; Referring Provider Plastic Surgery; Visit Provider Plastic Surgery
PROC: (CPT 15823; principal; 2023-09-29 09:10)
DX: H02.831 Dermatochalasis of right upper eyelid (principal); H02.834 Dermatochalasis of left upper eyelid; H53.453 Other localized visual field defect, bilateral; I10 Essential (primary) hypertension; E03.9 Hypothyroidism, unspecified; E55.9 Vitamin D deficiency, unspecified; F32.A Depression, unspecified; Z79.82 Long term (current) use of aspirin; Z79.890 Hormone replacement therapy; Z79.899 Other long term (current) drug therapy
CPT/HCPCS: 15823; 00103; J7120; J2405

== ENCOUNTER → 2023-11-14 | Outpatient (CLI) | payer OTHER, SELFPAY ==
[2023-11-14 09:01] LABS: Free T3 2.4 pg/mL (2.18-3.98); T4 Free Direct 1.48 ng/dL (0.76-1.46); Thyroid Stim Hormone (TSH) 0.009 uIU/mL (0.358-3.740)
== END | disposition home or self-care (01) ==
LOC: LAB 07:10
PROVIDERS: PCP Family Medicine; Referring Provider Family Medicine; Visit Provider Family Medicine
DX: E03.9 Hypothyroidism, unspecified (principal)
CPT/HCPCS: 36415; 84439; 84443; 84481

== ENCOUNTER → 2024-02-08 | Outpatient (CLI) | payer OTHER, SELFPAY ==
--- NOTE | 2024-02-08 14:54 | BD_ITS ---
STUDY: DUAL ENERGY X-RAY ABSORPTIOMETRY / DXA REASON FOR EXAM: Female, 53 years old. 733.00OsteoporosisBONE DENSITY REASON FOR EXAM TECHNIQUE: Bone Mineral Density (BMD) measurements of left forearm and bilateral hips were obtained. COMPARISON: None. FINDINGS: Left Femur Total: g/cm2 (0.860) / T-score (-0.7) / Z-score (0.0) Left Femoral Neck: g/cm2 (0.665) / T-score (-1.7) / Z-score (-0.6) Right Femur Total: g/cm2 (0.877) / T-score (-0.5) / Z-score (0.2) Right Femoral Neck: g/cm2 (0.777) / T-score (-0.7) / Z-score (0.4) Left Forearm: g/cm2 (0.696) / T-score (0.0) / Z-score (1.1) BD/Dexa Bone Density Study IMPRESSION: The patient is considered osteopenic as outlined below according to World Bobby Organization (WHO) criteria with a moderate fracture risk. Reference Information: The T-score is the number of standard deviations above or below the standard which is normal for young adults at their peak bone mineral density. The World Health Organization (WHO) interprets the T-scores as follows: Above -1 Normal bone density Between -1 and -2.5 Osteopenia Equal to / or below -2.5 Osteoporosis As a practical clinical guideline, osteopenia may be graded as follows: Mild -1 through -1.5 Moderate -1.6 through -2.0 Severe -2.1 through -2.4 The Z-score is the number of standard deviations above or below age-matched controls. A Z-score of less than -1.5 would be considered abnormal. References: 1. NIH Osteoporosis and Related Bone Diseases www osteo.org 2. International Society for Clinical Densitometry www iscd.org 3. National Osteoporosis Foundation www nof.org Electronically Signed: Sukhjinder Mejia MD at 15:31 EST ,
== END | disposition home or self-care (01) ==
LOC: OPBD 14:52
PROVIDERS: PCP Family Medicine; Referring Provider Family Medicine; Visit Provider Family Medicine
DX: M81.0 Age-related osteoporosis without current pathological fracture (principal)
CPT/HCPCS: 77080

== ENCOUNTER → 2024-03-07 | Outpatient (CLI) | payer OTHER, SELFPAY ==
[2024-03-07 12:14] LABS: Free T3 2.3 pg/mL (2.18-3.98); T4 Free Direct 1.17 ng/dL (0.76-1.46); Thyroid Stim Hormone (TSH) 0.738 uIU/mL (0.358-3.740)
== END | disposition home or self-care (01) ==
LOC: LAB 10:53
PROVIDERS: PCP Family Medicine; Referring Provider Family Medicine; Visit Provider Family Medicine
DX: E03.9 Hypothyroidism, unspecified (principal)
CPT/HCPCS: 36415; 84439; 84443; 84481

== ENCOUNTER → 2024-04-25 | Outpatient (CLI) | payer OTHER, SELFPAY ==
--- NOTE | 2024-04-25 14:07 | BI_ITS ---
PROCEDURE: SCRN MAMM (CAD)W/MAMIE BILAT REASON FOR EXAM: F, Age 54 y/o , SCREENING. No family history. Prior bilateral breast reduction surgery. TECHNIQUE: Bilateral screening digital breast tomosynthesis with 2D and 3D images. Computer aided detection. COMPARISON: Prior exam(s) dating back to April 24, 2023.. FINDINGS: The breasts are heterogeneously dense which may obscure small masses. Stable asymmetry of breast tissue were more breast tissue is seen in the retroareolar region of the right breast as compared to the left side. No suspicious masses, areas of developing architectural distortion, or suspicious calcifications. Stable examination. BI/SCRN MAMM (CAD)W/MAMIE BILAT IMPRESSION: BI-RADS 2: BENIGN. RECOMMEND ANNUAL MAMMOGRAPHIC SCREENING. Follow-up code: Routine Follow-up The patient will be notified of the results by letter. Reading Location: [id number]
== END | disposition home or self-care (01) ==
LOC: OPBI 13:50
PROVIDERS: PCP Family Medicine; Referring Provider Family Medicine; Visit Provider Family Medicine
DX: Z12.31 Encounter for screening mammogram for malignant neoplasm of breast (principal)
CPT/HCPCS: 77063; 77067

== ENCOUNTER → 2024-05-02 | Outpatient (CLI) | payer OTHER, SELFPAY ==
--- NOTE | 2024-05-02 08:12 | RAD_ITS ---
PROCEDURE: CERV SPINE 4 OR 5 VIEWS 05/02/2024 REASON FOR EXAM: CERVICALGIA TECHNIQUE: Five view cervical spine series including bilateral oblique views. COMPARISON: None. RAD/Cerv Spine 4 or 5 Views IMPRESSION: [id number] degenerative changes of the cervical spine are seen, most prom inent at the C5-C6 level, where moderate disc space narrowing and uncovertebral joint hypertrophy is seen. Probable mild dis c narrowing at C4-C5. Mild left C5-C6 and moderate right C5-C6 osseous neural foraminal narrowing is noted. Mild bilateral C4-C5 osseous neural foraminal narrowing is also evident. No fracture, subluxation, or prevertebral soft tissue swelling is evident. Reading Location: [id number]
== END | disposition home or self-care (01) ==
LOC: RAD 08:09
PROVIDERS: PCP Family Medicine; Referring Provider Nurse Practitioner Family; Visit Provider Nurse Practitioner Family
DX: M54.2 Cervicalgia (principal)
CPT/HCPCS: 72050

== ENCOUNTER → 2024-05-31 | Outpatient (CLI) | payer OTHER, SELFPAY ==
--- NOTE | 2024-05-31 14:27 | RAD_ITS ---
PROCEDURE: CERV SPINE 2 OR 3 VIEWS 05/31/2024 REASON FOR EXAM: PAIN TECHNIQUE: 2 views of the cervical spine. Flexion-extension COMPARISON: 05/02/2024 FINDINGS: Cervical spine is visualized on the lateral view from the skull base to the bottom of C7. No fracture or malalignment. No prevertebral soft tissue swelling. No evidence of instability. Spondylosis/discogenic change appears greatest at C5-6 again noted. RAD/Cerv Spine 2 or 3 Views IMPRESSION: Spondylosis/discogenic change again noted without evidence of instability ident ified. Reading Location: [id number]
== END | disposition home or self-care (01) ==
PROVIDERS: PCP Family Medicine; Referring Provider Student in an Organized Health Care Education/Training Program; Visit Provider Student in an Organized Health Care Education/Training Program
DX: M54.2 Cervicalgia (principal)
CPT/HCPCS: 72040

== ENCOUNTER → 2024-06-01 | Outpatient (CLI) | payer OTHER, SELFPAY ==
--- NOTE | 2024-06-01 09:25 | MRI_ITS ---
PROCEDURE: SPINE CERVICAL (ROUTINE) 06/01/2024 REASON FOR EXAM: Worsening neck pain x4 months. Headaches. Upper extremity numbness and tingling, worse on the left TECHNIQUE: Multiplanar and multisequence images were obtained without IV contrast administration. COMPARISON: Plain film imaging dated 05/31/2024 and 05/02/2024 FINDINGS: Vertebrae: Reversal of the normal lordotic curvature of the midcervical spine, which could be positional versus muscle spasm. Grade 1 anterolisthesis of C3 on C4 and C4 on C5. Minimal endplate changes seen at the inferior endplate of C5. Cervical vertebral body heights are maintained. No acute cervical spine fractures or dislocations are identified. There is mild multilevel degenerative disc changes, most conspicuous at the C5-6 level. Cervicomedullary junction is preserved. Cervical cord morphology and signal intensities within normal limits. No prevertebral soft tissue swelling is seen. Few cervical lymph nodes are identified bilaterally, subcentimeter in size in short axis. Disc levels as follows: C2-3: No disc herniation, central spinal or neural foraminal stenosis bilaterally. C3-4: Minimal broad-based disc bulge. No significant central spinal or right neural foraminal stenosis. Mild neural foraminal stenosis on the left secondary to facet arthrosis and uncovertebral joint hypertrophy. C4-5: Broad-based disc bulge mildly effaces the ventral subarachnoid space. No significant central spinal stenosis or right neural foraminal stenosis. Moderate neural foraminal stenosis on the left secondary to uncovertebral joint hypertrophy and facet arthrosis C5-6: Broad-based disc osteophyte complex eccentric towards the right, mildly narrows the right spinal canal. Severe neuroforaminal stenosis bilaterally, worse on the right secondary to uncovertebral joint hypertrophy and facet arthrosis. C6-7: Mild paracentral disc bulge on the right. No significant central spinal or neural foraminal stenosis bilaterally. C7-T1: No disc herniation, central spinal or neural foraminal stenosis bilaterally MRI/Spine Cervical (Routine) IMPRESSION: 1. Reversal of the normal lordotic curvature of the midcervical spine, which co uld be positional versus muscle spasm. 2. At the C5-6 level, broad-based disc osteophyte complex eccentric towards the right, mildly narrows the right spinal canal. Severe neuroforaminal stenosis bilaterally, worse on the right. 3. At the C4-5 level, trace grade 1 anterolisthesis with a broad-based disc bul ge. No central spinal stenosis. Moderate neural foraminal stenosis on the left. 4. At the C3-4 level, trace grade 1 anterolisthesis with a minimal broad-based disc bulge without significant central spinal stenosis. Mild neural foraminal stenosis on the left. 5. Additional less prominent spondylotic changes of the remaining cervical spin e, as above Reading Location: [id number]
== END | disposition home or self-care (01) ==
PROVIDERS: PCP Family Medicine; Referring Provider Student in an Organized Health Care Education/Training Program; Visit Provider Student in an Organized Health Care Education/Training Program
DX: M54.12 Radiculopathy, cervical region (principal)
CPT/HCPCS: 72141

== ENCOUNTER 2024-06-09 18:27 | Emergency (ER) | payer OTHER, SELFPAY ==
[2024-06-09 18:30] VITALS: BP 103/86; PULSE 127; RESP 24; TEMP 36.2; O2SAT 100; BMI 29.0
--- NOTE | 2024-06-09 18:55 | EKG12_ITS ---
Test Reason : SOB Blood Pressure : */* mmHG Vent. Rate : 99 BPM Atrial Rate : 99 BPM P-R Int : 142 ms QRS Dur : 76 ms QT Int : 356 ms P-R-T Axes : 49 7 57 degrees QTcB Int : 456 ms Normal sinus rhythm Normal ECG Confirmed by SHALA MONROY, MARCELO ([id number]), editorial writer GERTRUDE FERNANDEZ ([id number]) on 06/12/2024 11:55:35 AM Referred By: Confirmed By: MARCELO LAST MD
[2024-06-09 19:00] VITALS: BP 146/85; PULSE 97; RESP 18; O2SAT 100
--- NOTE | 2024-06-09 19:04 | ED.VIS.DYS ---
HPI History of Present Illness Chief Complaint: Shortness of Breath Informant: patient Narrative Narrative: Patient 54-year-old female with history of hypertension, hypothyroidism and fibromyalgia presenting with worsening shortness of breath. Patient states on Monday, 4 days ago, she developed some cold-like symptoms. She had congestion, sore throat and a mild cough. She is continue to feel fatigued. The following day she continued to cough and had to call off work. 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 She notes her cough is improved however she has been more short of breath and dyspneic on exertion. She states that her mother was recently put in custodial on April 13 at her and her brother have been packing her things up and getting ready to sell them. She is very short of breath with this activity which is unusual for her. 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 She had some nausea this morning. She notes she felt dizzy while doing laundry. She denies any wheezing. Denies any fever. Does use one of her legs. Denies a history of DVT or PE. Takes an 81 mg aspirin because of the lecture she went to for [employer] but has never had any known cardiac disease. Notes that she did have a recent cardiac workup which was negative. She states she had a workup because her younger brother had a heart attack at a younger age. Patient Nuys any history of any lung disease. Came in for further evaluation. No other complaints or concerns at this time. [facility] Medical History History of thyroid disease History of gastroesophageal reflux (GERD) History of allergic urticaria History of hypertension History of migraine headaches History of migraine History of depression History of anxiety History of UTI History of bladder infections History of arthritis History of seasonal allergies Wears glasses Depression Alcohol use Rash Arthritis Thyroid disease Urinary frequency History of kidney stones Easy bruising Dietary restriction Non-smoker Shortness of breath on exertion History of echocardiogram History of stress test History of gastrectomy Right lateral epicondylitis DDD (degenerative disc disease), lumbar Home Medications ?Medication ?Instructions ?Recorded ?Last Taken ?Type cholecalciferol (vitamin D3) 25 2,000 unit PO DAILY 09/01/14 Unknown History mcg (1,000 unit) tablet (Vitamin D3) aspirin 81 mg chewable tablet 81 mg PO QHS 11/23/15 09/14/23 History fexofenadine-pseudoephedrine ER 1 ea PO DAILY 11/23/15 Unknown History 180 mg-240 mg tablet,ext.release 24 hr (Sallie-D 24 Hour) calcium citrate 1,200 mg PO DAILY 11/20/18 Unknown History cyanocobalamin (vitamin B-12) 2,500 mcg sublingual DAILY 11/20/18 Unknown History 2,500 mcg chewable tablet gabapentin 100 mg capsule 100 mg PO DAILY PRN nerve pain 11/20/18 06/09/24 History multivitamin with minerals 2 ea PO DAILY 11/20/18 09/14/23 History biotin 1 mg capsule 1 mg PO DAILY 04/05/21 Unknown History levothyroxine 112 mcg tablet 150 mcg PO DAILY 08/09/23 09/29/23 History methocarbamol 750 mg tablet 750 mg PO QHS PRN pain 08/09/23 06/09/24 History bupropion HCl 300 mg 24 hr tablet, 300 mg PO QDAY 05/30/24 Unknown History extended release citalopram 20 mg tablet 20 mg PO QDAY 05/30/24 Unknown History milnacipran 50 mg tablet (Savella) 50 mg PO BID FIBROMYALGIA PAIN 05/30/24 Unknown History trazodone 50 mg tablet 100 mg PO QHS PRN sleep 05/30/24 Unknown History valsartan 320 mg tablet 320 mg PO QDAY 05/30/24 Unknown History lidocaine 5 % topical patch 1 patch topical Q24H 06/09/24 Unknown History vibegron 75 mg tablet (Gemtesa) 75 mg PO DAILY 06/09/24 Unknown History Allergy/AdvReac Type Severity Reaction Status Date / Time gluten Allergy headache Verified 06/09/24 18:30 sulfamethoxazole (From AdvReac Vomiting Verified 06/09/24 18:30 Bactrim) trimethoprim (From Bactrim) AdvReac Vomiting Verified 06/09/24 18:30 Family History Mother Hypertension Heart disease Diabetes Thyroid disorder High cholesterol Depression Father Hypertension Alcoholism Arthritis Cancer sinus Brother Hypertension Heart disease Grandfather Thyroid disorder Cancer stomach Grandmother CVA (cerebral vascular accident) Cancer stomach Colon cancer Surgical History Hx of surgical procedure History of bariatric surgery History of bilateral breast reduction surgery History of hysterectomy History of pubovaginal sling History of back surgery History of colonoscopy Social History Smoking Status: Never smoker alcohol intake: current details: 2 x week additional social history: pt denies vaping, denies marijuana use, denies edibles, uses aspirin daily, uses ibuprofen weekly ROS ROS ED Constitutional Constitutional ED: Reports sweats; Denies chills or fever(s) ENT ENT ED: Reports rhinorrhea and sore throat Cardiovascular Cardiovascular: Denies chest pain or orthopnea Respiratory/Chest Respiratory/Chest: Reports cough and dyspnea on exertion; Denies orthopnea or sputum Gastrointestinal Gastrointestinal: Reports nausea; Denies abdominal pain, melena or vomiting Musculoskeletal Musculoskeletal: Denies myalgias Integumentary Denies rash Neurologic Neurologic: Reports weakness; Denies paresthesias Psychiatric Psychiatric: Denies anxiety Hematologic/Lymphatic Hematologic/Lymphatic: Denies easy bleeding or easy bruising EXAM Physical Exam Const Vital Signs: 06/09/24 18:30 06/09/24 19:00 06/09/24 19:00 Temperature 97.1 F L Temperature Source Temporal Pulse Rate 127 H 97 Respiratory Rate 24 H 18 Respiratory Effort Normal Non-Labored Respiratory Depth Normal Respiratory Pattern Normal Blood Pressure 103/86 H 146/85 H Blood Pressure Mean 91 105 Pulse Ox 100 100 Oxygen Delivery Method Room Air Room Air Room Air 06/09/24 20:00 06/09/24 21:00 06/09/24 22:06 Temperature 98.1 F Temperature Source Oral Pulse Rate 90 80 80 Respiratory Rate 16 16 11 L Respiratory Effort Respiratory Depth Respiratory Pattern Blood Pressure 147/85 H 148/85 H 147/84 H Blood Pressure Mean 105 106 105 Pulse Ox 98 99 100 Oxygen Delivery Method Room Air Room Air Room Air Positive well nourished and well developed General Appearance ED: well developed and NAD; Negative for pallor HEENT Reports TM's clear and dry mucous membranes HEENT Narrative: Normal oropharynx Tympanic Membrane ED: Yes TM's clear Mouth ED: Yes dry mucous membranes Mouth: dry mucous membranes Neck supple and no JVD Resp normal respiratory effort and clear to auscultation bilaterally Auscultation: Negative for rales, rhonchi, wheezes or diminished lung sounds Cardio regular rhythm and no murmurs Cardio Narrative: 2+ radial and DP pulses Rate: tachycardic GI non-tender and non-distended Neuro oriented x3 Sensorium / Orientation: alert Motor Exam: Negative for general weakness Psych mental status grossly normal Skin no wounds General Skin Exam: Negative for jaundice or pallor MDM MDM MDM Narrative Medical decision making narrative: Differential diagnosis includes thyroid storm, symptomatic anemia, ACS, myocarditis, viral syndrome, pneumonia and pulmonary emboli. Lab work shows leukocytosis white count of 14.6 but in addition she has elevation of her hemoglobin of 16.0. I suspect there is hemoconcentration. BMP shows signs of dehydration with a bicarb of 19.8, anion gap of 16, BUN of 28 and creatinine of 1.36. Her baseline creatinine is 0.8. Initial high since he troponin is normal at 9. Her TSH is mildly elevated 8.88 which would be more suggestive of hypothyroidism and not consistent with her presentation today. Patient is ordered a second liter of IV fluids as I suspect this is more related to dehydration. Her D-dimer is normal and I do not think she is a PE. Chest x-ray, 2 views, reviewed by myself as well as radiology does not show any acute process. Patient is ambulated after 2 L of fluid with no desaturation or significant tachycardia. She states that she is feeling much better after fluid resuscitation. Repeat high-sensitivity troponin is mildly elevated at 15 however it is only a delta of 6 I do not think she requires further cardiac monitoring especially as she is now asymptomatic. Patient is comfortable and discharged home. Suspect her presentation is consistent to acute dehydration and possibly near syncope. Counseled on pushing fluids with electrolytes at home. Counseled has worsening symptoms or continued symptoms she should return to the emergency room and we can discuss admission at that time. Discussed having her follow-up with her primary care doctor for recheck on her labs later this week. Patient agreeable with plan of care. Patient given return precautions. Discharged home in improved and stable condition. Lab Data Attestation: I reviewed the patient's lab results. Labs: Laboratory Results - last 24 hr 06/09/24 06/09/24 19:39 21:40 WBC 14.6 H RBC 5.57 H Hgb 16.0 H Hct 47.3 H MCV 84.9 MCH 28.7 MCHC 33.8 RDW Std Deviation 44.7 H RDW Coeff of [place] 14.4 Plt Count 384 MPV 8.7 Immature Gran % (Auto) 0.800 Neut % (Auto) 78.5 H Lymph % (Auto) 13.5 L [place] % (Auto) 5.6 Eos % (Auto) 0.9 Baso % (Auto) 0.7 Absolute Neuts (auto) 11.4 H Absolute Lymphs (auto) 1.97 Nucleated RBC % 0 D-Dimer Quant (PE/DVT) 0.40 Sodium 134 Potassium 4.4 Chloride 98 Carbon Dioxide 19.8 L Anion Gap 16 H BUN 28 H Creatinine 1.36 H Estim Creat Clear Calc 45.15 L Est GFR (MDRD) Non-Af 46 L BUN/Creatinine Ratio 20.9 H Glucose 130 H Calcium 9.8 Troponin T High Sens 9 Troponin T Hi Sens 2 Hr 15 H TSH 8.880 H ABG Data ABG results: ABG 06/09/24 20:32 Specimen Type TOMMIE Sample Site Not entered VBG pH 7.38 VBG pO2 30 VBG HCO3 23 VBG Total CO2 24 VBG O2 Sat (Calc) 56 VBG Base Excess -2 L POC Mix VBG pCO2 Pt Tmp 39.2 L O2 Delivery Device Room Air Radiography Diagnostic Testing: Clinical Impression(s) from Imaging Studies Chest X-Ray 06/09/24 20:20 IMPRESSION: NO ACUTE FINDINGS. Reading Location: [facility] Rhythm Strip Rhythm Strip: Sinus Rhythm Rate: 99 Ectopy: None EKG Initial EKG: Attestation: I personally reviewed and interpreted this EKG as follows: Interpretation: Sinus Rhythm Comments: Normal sinus rhythm at a rate of 99 bpm Normal axis Normal intervals Normal ST segments Discharge Plan Triage Chief Complaint: Shortness of Breath ED Provider: Kiera cMcullough Dx/Rx/DC Orders Clinical Impression: Acute dehydration, Dyspnea, Acute renal insufficiency Instructions: ED Dehydration (Adult), ED Dyspnea Prescriptions: No Action biotin 1 mg capsule 1 mg PO DAILY methocarbamol 750 mg tablet 750 mg PO QHS PRN (Reason: pain) trazodone 50 mg tablet 100 mg PO QHS PRN (Reason: sleep) citalopram 20 mg tablet 20 mg PO QDAY valsartan 320 mg tablet 320 mg PO QDAY bupropion HCl 300 mg tablet extended release 24 hr 300 mg PO QDAY cholecalciferol (vitamin D3) [Vitamin D3] 1,000 UNIT tablet 2,000 unit PO DAILY levothyroxine 112 mcg tablet 150 mcg PO DAILY Savella 50 mg tablet 50 mg PO BID Patient Comments: 50 MG IN MORNING, 50 MG AT NIGHT aspirin 81 MG tablet,chewable 81 mg PO QHS fexofenadine-pseudoephedrine [Sallie-D 24 Hour] 1 EACH tablet extended release 24 hr 1 ea PO DAILY gabapentin 100 MG capsule 100 mg PO DAILY PRN (Reason: nerve pain) Rx Instructions: 1OO MG IN A.M.; 100 MG QHS; 100MG PRN multivitamin with minerals 1 EACH tablet 2 ea PO DAILY calcium citrate 250 MG tablet 1,200 mg PO DAILY cyanocobalamin (vitamin B-12) 2,500 MCG tablet,chewable 2,500 mcg sublingual DAILY Gemtesa 75 mg tablet 75 mg PO DAILY lidocaine 5 % adhesive patch,medicated 1 patch topical Q24H Primary Care Provider: Samra Obrien Referrals: Samra Obrien DO [Primary Care Provider] - Activity Restrictions/Additional Instructions: Your creatinine was elevated at 1.36. Your TSH was also mildly elevated 8.8. Please follow with your primary care doctor later this week for repeat labs. I suspect your symptoms today were associated with dehydration. Make sure you are you are pushing water and some fluids with electrolytes at home as well. Please return if you have a worsening of your symptoms. Print Language: Nepali Disposition Disposition: Home, Self Care
[2024-06-09 19:45] LABS: Absolute Lymphocyte Count 1.97 X10^3/uL (0.83-4.51); Absolute Neutrophil Count 11.4 X10^3/uL (2.0-7.7); Basophil% 0.7 % (0-1); Eosinophil# 0.13 X10^3/uL; Eosinophils% 0.9 % (0-5); Hematocrit 47.3 % (37-47); Lymphocyte # 1.97 X10^3/ul (0.83-4.51); Lymphocyte % 13.5 % (19-41); Mean Corp Hgb Conc 33.8 g/dL (32-36); Mean Corpuscular Hgb 28.7 pg (27.0-32.0); Mean Corpuscular Volume 84.9 fL (81-99); Mean Platelet Vol. 8.7 fl (6.2-12.0); Monocyte# 0.82 X10^3/uL; Monocyte% 5.6 % (0-10); NRBC Flagged by Analyzer 0 % (0-5); Neutrophil # 11.43 X10^3/uL (2.7-7.7); Neutrophil % 78.5 % (47-70); Platelet Count 384 K/mm3 (150-450); RBC Distribution Width CV 14.4 % (11.6-14.6); RBC Distribution Width SD 44.7 fl (35.1-43.9); Red Blood Count 5.57 M/mm3 (4.2-5.4); White Blood Count 14.6 K/mm3 (4.4-11.0)
[2024-06-09] MEDS: 0.9% Normal Saline (1000mL) 1,000 ML 1000 ML IV (19:46)
[2024-06-09 20:00] VITALS: BP 147/85; PULSE 90; RESP 16; O2SAT 98
[2024-06-09 20:15] LABS: Anion Gap 16 (5-15); BUN 28 mg/dL (4-19); BUN/Creat Ratio 20.9 RATIO (10-20); Calcium,Total 9.8 mg/dL (7.6-11.0); Carbon Dioxide 19.8 mmol/L (21.0-32.0); Chloride 98 mmol/L (98-108); Creatinine, Serum 1.36 mg/dL (0.70-1.20); EST Glomerular Filtration Rate 46 (>60); Estimated Creatinine Clearance 45.15 ml/min (50-250); Glucose 130 mg/dL (70-99); Potassium 4.4 mmol/L (3.3-5.1); Sodium Level 134 mmol/L (133-145); Troponin T High Sensitivity 9 ng/L (<=14)
--- NOTE | 2024-06-09 20:20 | RAD_ITS ---
PROCEDURE: CHEST PA AND LATERAL 06/09/2024 REASON FOR EXAM: SOB TECHNIQUE: Frontal and lateral views of the chest. FINDINGS: Hardware: Dorsal column spinal stimulator in the lower thoracic spine. Heart: The heart size is normal. Mediastinum: The mediastinal contour is unremarkable. Lungs: The lungs are clear. Bones: The bones are unremarkable. RAD/Chest PA and Lateral IMPRESSION: NO ACUTE FINDINGS. Reading Location: [id number]
[2024-06-09 20:35] LABS: Blood Gas Specimen Type VEN; O2 Delivery Device Room Air; SITE Not entered; VBG BASE EXCESS -2 mmol/L (-1.0-3.5); VBG Bicarbonate 23 mmol/L (22-26); VBG PO2 30 mmHg (25-40); VBG SO2 56 % (50-70); VBG TCO2 24 mmol/L (23-33); VBG pCO2 39.2 mmHg (41-51); VBG pH 7.38 (7.32-7.42)
[2024-06-09] MEDS: 0.9% Normal Saline (1000mL) 1,000 ML 999 ML IV (20:42)
[2024-06-09 21:00] VITALS: BP 148/85; PULSE 80; RESP 16; O2SAT 99
[2024-06-09 22:06] VITALS: BP 147/84; PULSE 80; RESP 11; TEMP 36.7; O2SAT 100
[2024-06-09 22:06] LABS: Troponin T High Sens 2 HR 15 ng/L (<=14)
[2024-06-09 22:25] VITALS: BP 147/84; PULSE 77; RESP 18; TEMP 36.8; O2SAT 100
== END 2024-06-09 22:25 | disposition home or self-care (01) ==
PROVIDERS: Emergency Provider Emergency Medicine; PCP Family Medicine; Visit Provider Emergency Medicine
DX: E86.0 Dehydration (principal); Z82.49 Family history of ischemic heart disease and other diseases of the circulatory system; R06.00 Dyspnea, unspecified; Z90.710 Acquired absence of both cervix and uterus; N28.9 Disorder of kidney and ureter, unspecified; I10 Essential (primary) hypertension; Z79.82 Long term (current) use of aspirin; R11.0 Nausea; R53.1 Weakness; R05.9 Cough, unspecified; Z98.84 Bariatric surgery status; E03.9 Hypothyroidism, unspecified; M79.7 Fibromyalgia
CPT/HCPCS: 71046; 80048; 82803; 84443; 84484; 85025; 85379; 93005; 96360; 96361; 99283; A4216

== ENCOUNTER → 2024-06-25 | Outpatient (CLI) | payer OTHER, SELFPAY ==
[2024-06-25 12:23] LABS: ALB/GLOB Ratio 1.4 RATIO (0.9-2.4); AST(SGOT) 25 U/L (<=31); Alanine Aminotransfer ALT/SGPT 23 U/L (<=34); Albumin, Serum 4.3 g/dL (3.5-5.0); Alkaline Phosphatase 85 U/L (35-104); Anion Gap 14 (5-15); BUN 16 mg/dL (4-19); BUN/Creat Ratio 21.1 RATIO (10-20); Calcium,Total 9.4 mg/dL (7.6-11.0); Chloride 103 mmol/L (98-108); Creatinine, Serum 0.78 mg/dL (0.70-1.20); EST Glomerular Filtration Rate 90 (>60); Glucose 78 mg/dL (70-99); Potassium 3.7 mmol/L (3.3-5.1); Protein, Total 7.3 g/dL (5.9-8.4); Sodium Level 141 mmol/L (133-145); Total Bilirubin 0.17 mg/dL (0.00-1.30)
== END | disposition home or self-care (01) ==
LOC: LAB 08:44
PROVIDERS: PCP Family Medicine; Referring Provider Family Medicine; Visit Provider Family Medicine
DX: E03.9 Hypothyroidism, unspecified (principal); Z51.81 Encounter for therapeutic drug level monitoring
CPT/HCPCS: 80053; 84443

== ENCOUNTER 2024-07-10 15:00 | Outpatient (RCR) | payer OTHER, SELFPAY ==
--- NOTE | 2024-06-11 16:00 | HP.PTEVAL ---
Patient's Visit Information Visit Information Visit Information: JARRELL GOFF is a 54 year old F referred to Physical Therapy by BRITTA Metcalf with a diagnosis of cervical radiculopathy, LBP. Date of Evaluation: 06/11/24 Physical Therapist: Gilbert Kerr, DPT, OCS, CSCS Visit Plan Frequency: 2x /Week Duration: 4-6 Weeks Plan: 2x/week for 4-6 weeks... IE HEP cervical rotation ROM, cervical retraction and ret/ext rom all with OP 10x 3x/day and postural education with activity modification and ergonomics education for work. MH and STM to L cervical paraspinals with manual traction and PROM neck for pain and tender L neck Teach neck stretching adn lumbar ROM(cat camel, kate pose, PPU) to HEP teach postural, cervical and core strength to HEP with list(ex pt can do at home as she does not want gym or pool right now.) Subjective Subjective: Chronic LBP, has spinal stimulator and gets regular injection, last injection 2 weeks ago. Currently 2/ intermittent but most of time, worse with working and bending forward for EKGs or down to get breathing treatment. Does stretches knee to chest and bend forward. had 2 back surgeries and no therapy(discectomy then cleaned out again and fusion in 2019 Had neck pain long time which chiropractic helped with but not anymore. Now getting LENNON with the neck pain and bothering her at work. L > R. Neck pain pain lately 03/25, LENNON and neck pain last week 06/22 on an unusually bad day. Gets numbness on L arm when roll on it. Nothing else causes that. Does some stretching in shower which does not help. No strengthening. 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 Work makes her worse. Too repetitive. Feels better on off days. Hobbies include: reading. Also, enjoys travelling daytrips. Has been hard with pain. Gets cleaning done and they make her worse. LENNON is frontal or posterior. Basic ADLss all getting done at home. Pain neck pain: Pain Intensity (Out of 10): 2 Pain Intensity Range: 0 and 5 Objective Objective: Walks into and out of PT I without gait deviations. Trasnfers chair and bed I. Good balance. cervical AROM 60 B rotations and feels stiff opposite, 50 extension and pain L, + c/s compression L. SB symmetrical. Tender to palpation in L paraspinals mostly. No LENNON created today. Lumbar AROM ext min limited, flexion and SB min limited, no pain today. reflexes bi/tri/patella/achilles all 2/3 Sensation UE and LE WNL to gross light touch. strength UE 4/5 without myotomal abnormalities. LE 4- without myotomal problems. - slump and SLR LE. Core instability with UE and LE testing in sitting. Balance/Special Test Scores Oswestry Neck Score: 16 Goals Goal 1:: LENNON abolished and neck pain 75% better at 1/10 at worst Goal Time Frame: 4-6 Weeks Goal 2:: I appropriate HEP to manage neck and LB problems. Goal Time Frame: 4-6 Weeks Goal 3:: Work without increased pain Goal Time Frame: 4-6 Weeks Goal 4:: neck oswestry 5 or less Goal Time Frame: 4-6 Weeks Rehabilitation Potential Physical Therapy Diagnosis: poor managemnt of degenerative changes in neck adn LB limitiing comfort. Rehabilitation Potential: Good Anticipated Interventions Patient/Client Instruction: Educate patient on: Condition and Plan of Care For the Purpose of:: To decrease pain, To increase ROM, To improve nutrient delivery to tissue, To increase tolerance to activity/condition/position and To improve ability of physical actions for home/community/work/leisure Therapeutic Exercise to Include: Strength training, Postural training, Flexibilty training, Passive ROM and Active ROM For the Purpose of:: To decrease pain, To increase ROM, To improve nutrient delivery to tissue, To increase tolerance to activity/condition/position and To improve gait and locomotor functions Manual Therapy Techniques to Include: Mobilization, Passive ROM and Soft tissue mobilization For the Purpose of:: To decrease pain, To increase ROM, To improve muscle performance and motor function, To increase tolerance to activity/condition/position and To improve ability of physical actions for home/community/work/leisure Thermo therapy (hot pack): Yes For the Purpose of:: To increase ROM and To improve nutrient delivery to tissue Text: Thank you for the opportunity to evaluate your patient. For Medicare and Medicare HMO plans, please review the plan of care and approve it. It will need to be FAXED BACK to us at [phone] for Medicare purposes. For Medicare only, by signing this I certify the plan of care. Please let me know if there are questions or concerns regarding this plan of care. Physician Signature: Date:
--- NOTE | 2024-07-10 15:42 | HP.PTDCSUM ---
Discharge Summary D/C summary: It has been my pleasure to treat JARRELL GOFF referred by BRITTA Metcalf, with the diagnosis of cervical radiculopathy, LBP for a total of 8 visit(s). Discharge Date: 07/10/24 Please see the following information for a summary of their discharge status. Subjective Subjective: Better. Not having any real sharp pains. soreness persists. Back buddies helps. Soreness stays at about 2-3/10 intermittently. Sitting at work is worse. No numbneess or weakness lately. MRI showed narrowing. Not seen ortho lately or since. Not seen pain management for neck. HEP: helpful. Not planning on [employer] anytime soon. Pain neck pain: Pain Intensity (Out of 10): 1 Upper back: Pain Intensity (Out of 10): 4 Overall Improvement % Improvement: 80 Objective Objective/Function: full UE and neck AROM except extension 55 degrees, L rotations 50 vs 55 on R. slight tightneess with L rotation on L side. Improved posture adn focus on head position. no weakness from R to L in upper extremities. Goals Goal 1:: LENNON abolished and neck pain 75% better at 1/10 at worst Goal Progress: Goal Met Goal 2:: I appropriate HEP to manage neck and LB problems. Goal Progress: Goal Met Goal 3:: Work without increased pain Goal Progress: Progressing Goal 4:: neck oswestry 5 or less Plan Plan: d/c to HEP D/C Information Discharge Comments: To continuee with HEEP and contact doctor if pain returns or neural signs. Does not wish to learn more strength at this time but it may be an option in the future. d/c sentence: If there are questions or concerns regarding this patient's physical therapy, please feel free to call me at [phone]. Thank you for the referral of this patient. Sincerely, Gilbert Kerr, DPT, OCS, CSCS Balance/Gait/Functional tests Balance/Special Test Scores Oswestry Neck Score: 11 Improvement % Improvement: 80
== END 2024-07-10 19:00 | disposition home or self-care (01) ==
LOC: PT 15:00
PROVIDERS: PCP Family Medicine; Referring Provider Student in an Organized Health Care Education/Training Program; Visit Provider Student in an Organized Health Care Education/Training Program
DX: M54.12 Radiculopathy, cervical region (principal); M54.50 Low back pain, unspecified
CPT/HCPCS: 97110; 97140; 97162; 97164

== ENCOUNTER 2024-08-28 16:07 | Outpatient (RCR) | payer OTHER, SELFPAY ==
[2024-08-28 19:02] LABS: Free T3 2.4 pg/mL (2.18-3.98)
== END 2024-09-12 23:59 ==
LOC: BFHLAB 16:07
PROVIDERS: PCP Family Medicine; Visit Provider Family Medicine
DX: E03.9 Hypothyroidism, unspecified (principal)
CPT/HCPCS: 36415; 84439; 84443; 84481

== ENCOUNTER → 2024-09-02 | Outpatient (CLI) | payer OTHER, SELFPAY ==
--- NOTE | 2024-09-02 11:55 | CT_ITS ---
PROCEDURE: CTA HEAD W/WO CONTRAST 09/02/2024 REASON FOR EXAM: SEVERE HEADACHES, VISION CHANGE TECHNIQUE: CTA HEAD W/WO CONTRAST Multiplanar Sagittal and Coronal images were obtained. Three-dimensional reconstructions CONTRAST: Isovue 370 VOLUME: 100 mL One or more dose reduction techniques were used (e.g., Automated exposure control, adjustment of the mA and/or kV according to patient size, use of iterative reconstruction technique). RADIATION DOSE SUMMARY: CTDlvol: 74 mGy DLP: 1169 mGycm FINDINGS: Initial noncontrast CT study of the brain is negative for mass or hydrocephalus. Angiographic images demonstrate normal distal cervical internal carotid arteries. Normal precavernous and petrous internal carotid vessels. Normal carotid siphons. Right and left middle cerebral arteries patent. Normal anterior cerebral arteries. Normal basilar artery. Developmental variation with a left-sided inferior petrosal vein prominently seen on the left side. No basilar stenosis. Cervical vertebral arteries patent. Negative for dural sinus thrombosis. Non-vascular findings: None CT/CTA Head W/WO Contrast IMPRESSION: Study within normal limits Reading [facility]
== END | disposition home or self-care (01) ==
LOC: CT 11:54
PROVIDERS: PCP Family Medicine; Referring Provider Family Medicine; Visit Provider Family Medicine
DX: R51.9 Headache, unspecified (principal); H53.9 Unspecified visual disturbance
CPT/HCPCS: 70496; Q9967

== ENCOUNTER 2024-10-08 11:33 | Outpatient (RCR) | payer OTHER, SELFPAY ==
[2024-10-08 15:28] LABS: Free T3 1.9 pg/mL (2.18-3.98)
== END 2024-10-08 18:00 | disposition home or self-care (01) ==
LOC: LAB 11:33
PROVIDERS: PCP Family Medicine; Visit Provider Family Medicine
DX: E03.9 Hypothyroidism, unspecified (principal)
CPT/HCPCS: 36415; 84439; 84443; 84481

== ENCOUNTER 2025-01-29 06:05 | Outpatient (RCR) | payer OTHER, SELFPAY ==
[2025-01-29 09:01] LABS: Free T3 2.9 pg/mL (2.18-3.98)
== END 2025-01-29 18:00 | disposition home or self-care (01) ==
LOC: LAB 06:05
PROVIDERS: PCP Family Medicine; Referring Provider Family Medicine; Visit Provider Family Medicine
DX: E03.9 Hypothyroidism, unspecified (principal)
CPT/HCPCS: 36415; 84439; 84443; 84481